=== PATIENT | male | born 1950 | race Caucasian/White ===

== ENCOUNTER → 2016-06-19 | Outpatient (CLI) | payer BC ==
[~2016-06-19] MED LIST: ASPI-427 PO; AZEL30SP NAE; FLUT0.0529 NAE; GLYB-108 PO; HYDR-4079 PO; METF1TAB53 PO; METO50TA7 PO; MONT1TAB3 PO; OXYM1TAB24 PO; SIMV20TA5 OR; TAMS0.4C38 PO
[2016-06-19 14:15] LABS: ESTIMATED AVERAGE GLUCOSE 157 mg/dl; HA1C FLAG Normal (Normal)
[2016-06-19 14:53] LABS: BLOOD UREA NITROGEN 21 mg/dl (7-18); BUN/CREATININE RATIO 18.6 (10-20); CARBON DIOXIDE 26 mmol/L (21-32); CHLORIDE 107 mmol/L (98-107); CHOLESTEROL 116 mg/dl (0-200); GLUCOSE 78 mg/dl (70-99); SODIUM 142 mmol/L (136-145); TRIGLYCERIDES 94 mg/dl (0-150); VERY LOW DENSITY LIPOPROT CALC 19 mg/dl
[2016-06-19 14:59] LABS: CHOLESTEROL/HDL RATIO 2.7; HDL CHOLESTEROL 43 mg/dl
[2016-06-19 15:00] LABS: CALCIUM 10.4 mg/dl (8.5-10.1)
== END | disposition home or self-care (01) ==
LOC: C.LABSPEC 12:31
PROVIDERS: ATTEND Internal Medicine
DX: Z00.00 Encounter for general adult medical examination without abnormal findings (principal); E11.9 Type 2 diabetes mellitus without complications; E78.5 Hyperlipidemia, unspecified

== ENCOUNTER → 2016-08-01 | Outpatient (CLI) | payer BC ==
--- NOTE | 2016-08-01 10:57 | DIAGNOSTIC IMAGING REPORT ---
MRI OF THE LUMBAR SPINE WITHOUT IV CONTRAST CLINICAL HISTORY: Chronic low back pain. Left lower extremity radiculopathy. COMPARISON STUDY: Radiographs of the lumbar spine dated 01/11/2011. Abdominal CT dated 07/08/2014. TECHNIQUE: MRI of the lumbar spine is performed utilizing various T1 and T2-weighted sequences in the axial and sagittal planes. IV contrast was not administered for this examination. FINDINGS: Lumbar spine: Vertebral body height and alignment are maintained throughout the lumbar spine. There is straightening of the lumbar lordosis. Marrow signal intensity is heterogeneous. Chronic degenerative endplate change is identified at L4-L5. Small anterior osteophytes are seen from L3 to S1. Small hemangiomas are seen at several levels. No destructive bony process is seen. The transverse and spinous processes appear intact. There is no evidence of spondylolysis. Intervertebral discs: Degenerative disc desiccation is seen throughout the lumbar spine. There is severe loss of height at L4-L5 and moderate loss of height at L5-S1. Spinal cord and central canal: The visualized spinal cord is normal in morphology and signal intensity. The conus medullaris terminates at the T12-L1 interspace. The nerve roots of the cauda equina are normal in morphology. There is peripheral splaying of the nerve roots of the cauda equina seen at the level of L5. The central canal appears slightly widened at this level, and there is an apparent septation within the central canal seen at the level of S1 where the nerve roots reconverge centrally. This is noted on axial image #25. There is near-complete fatty replacement of the central canal in the sacral region. L1-L2: Unremarkable. L2-L3: There is minimal posterior disc bulge. In conjunction with hypertrophy of the ligamentum flavum there is mild acquired compromise of the central canal. The minimum AP diameter measures 8 mm. There is minimal bilateral subarticular stenosis. The neural foramina are patent. A synovial cyst on the right projects medially at this level and measures 6 mm. This is best seen on axial image #8 and impinges on the posterior aspect of the thecal sac. L3-L4: There is mild posterior disc bulge. In conjunction with hypertrophy of the ligamentum flavum as well as a 10 mm T1 and T2 hypointense medially projecting indeterminant nodule identified along the right aspect of the ligamentum flavum adjacent to the facet joint seen on axial image #13 this causes mild acquired compromise of the central canal. There is effacement of the posterior right thecal sac from this nodular density. This impinges on the transiting right-sided nerve roots. There is mild central canal stenosis at this level with a minimum AP diameter of 7.5 mm. L4-L5: There is broad-based posterior disc bulge eccentric to left. The central canal appears clear. There is severe left-sided subarticular stenosis with probable impingement on the exiting left L4 nerve root. Facet arthropathy causes moderate left and minimal right neural foraminal stenosis. L5-S1: There is mild posterior disc bulge. Prominent facet arthropathy causes moderate bilateral neural foraminal stenosis. The central canal appears clear at this level with the nerve roots displayed peripherally. Sacrum: Visualized sacrum is normal in morphology and signal intensity. Soft tissues: The paraspinous soft tissues are normal as imaged. The partially visualized retroperitoneal structures are grossly normal but incompletely assessed. IMPRESSION: 1. No destructive bony process is identified. 2. There is a synovial cyst identified on the right at L2-L3. This effaces the right posterior aspect of the thecal sac, and there is mild acquired compromise of the central canal at this level. 3. There is an indeterminant nodule identified along the right ligamentum flavum at L3-L4. This is located adjacent to the facet joint and may represent a complex synovial cyst (T2 hypointense). Other lesions are not excluded. If clinically warranted this could be further assessed with a contrast-enhanced examination. This nodule effaces the right posterior aspect of the thecal sac at this level and impinges on the transiting nerve roots. There is mild acquired compromise of the central canal at this level. 4. There is near-complete fatty replacement of the central canal in the sacral region. There is a septation suggested within the central canal in the AP plane at S1. This is of indeterminant significance and may be on a congenital basis. 5. There is peripheral splaying of the nerve roots of the cauda equina at L5. There is no compromise of the central canal at this level, and this is of indeterminant significance. This may be related to a flow phenomenon, the septation seen more inferiorly, or possibly represent a simple cystic lesion within the central canal. The nerve roots of the cauda equina are normal in morphology. 6. See discussion for detailed level by level analysis. Dictated: 08/01/2016 10:24 AM Transcribed: 08/01/2016 10:57 AM [facility] Electronically signed by: Gurpreet Putnam M.D. 08/01/2016 2:38 PM Dictated Date/Time: 08/01/2016 10:24 AM
== END | disposition home or self-care (01) ==
LOC: C.MRIBC 09:24
PROVIDERS: ATTEND Internal Medicine
DX: M54.16 Radiculopathy, lumbar region (principal); M51.86 Other intervertebral disc disorders, lumbar region; M71.39 Other bursal cyst, multiple sites

== ENCOUNTER → 2016-08-17 | Outpatient (CLI) | payer BC ==
--- NOTE | 2016-08-18 05:37 | PAP/PSG TECHNICIAN REPORT ---
[facility] Health Coordinator Polysomnogram Report Study name: None Report date: 08/18/2016 Study date: 08/17/2016 Referring Physician: Robbie Gray M.D. Name: EDWIN JUAN JON Interpreting Physician: Robbie Gray M.D. Date of : 1950 Health Coordinator: Robert Gonzalez RPSGT. Sex: Male Age: 66 StudyType: PSG Weight: 198 lbs 17 inches Height: 66 years, Height 6' 0" Neck Circum: BMI: 26.85 Medications: GLUCOPHAGE 500 MG, GLYBURIDE 2.5 MG, METOPROLOL SUCCINATE ER 25 MG, OPANA ER 10 MG, SIMVASTATIN 20 MG, TAMSULOSIN HCL 0.4 MG Patient History PATIENT HAS HISTORY OF SNORING AND FATIGUE. HE ALSO HAS HISTORY MAINTAING SLEEP AND THIS WILL HAPPEN ALMOST EVERY NIGHT. HE IS ON CHRONIC NARCOTICS. HE HAD SLEEP STUDY DONE IN THE PAST BUT ONLY SHOWED MILD APNEA. HE IS HERE [facility] FOR AN EVALUATION FOR KARL. ESS = 13 RM 1 Parameters Monitored NPSG: E1-M2, E2-M1, Fp1-M2, Fp2-M1, F3-M2, F4-M2, F4-M1, C3-M2, C4-M2, C4-M1, O1-M2, O2-M2, O2-M1, T3-M2, T4-M1, P3-M2, P4-M1, CHIN1, CHIN2, HR, EKG, Legs, PFLOW, SNOR, FLOW, CFLOW, Tidal Volume, THOR, ABDO, SpO2, PLTH, CPRESS, ETCO2 Wave, ETCO2, pH Sleep Architecture Sleep Stages Time at Lights Off 10:39:02 PM STAGES Time (min.) TST (%) Time at Lights On 5:28:32 AM Wake 41.0 -- Total Recording Time (TRT) 410.00 min. N1 5.5 1 Total Sleep Period (TSP) 405.5 min. N2 228.5 62 Total Sleep Time (TST) 368.5min. N3 52.0 14 Awake Time 41.0 min. REM 82.5 22 Wake after Sleep Onset 40.0 min. Sleep Efficiency (SE) 90 % Sleep Onset Latency (JAMILAH) 1.0 min. Number of Stage 1 Shifts None Awakenings 10 Stage Changes 81 Number of REM periods 5 REM 82.5 22 REM Latency 10.5 min. NREM 286.0 78 Body Position Analysis Supine Right Left Side Prone Vertical Total Sleep Time (min.) 167.0 208.3 0.0 208.35 0.0 0.0 Total Sleep Time (%) 43% 57% 0% 57 0% N/A% Total Sleep Time REM (min.) 4.9 77.6 0.0 None 0.0 0.0 Total Sleep Time NREM (min.) 155.2 130.8 0.0 None 0.0 0.0 Intermittent Wake (min.) 6.8 34.2 0.0 None 0.0 0.0 Total Sleep Period (%) 40% None None None None None Arousals Myoclonus (PLM) * Events Count Index Events Count Index Spontaneous 18 3 Events Awake (PLMW) 50 73.2 Respiratory 17 2.8 Events Asleep w/ Arousal (PLMA) 2 0.3 PLM 1 0 Events Asleep w/o Arousal (PLMS) 25 4.1 Snoring 3 0 Total Asleep 27 4.4 Total 39 6 Total 77 11 Respiratory Analysis * CA OA MA CH H RERA Total Count 0 0 0 0 48 15 48 Index 0.0 0.0 0.0 0 7.8 2 10.3 Mean Duration 0.0 0.0 0.0 0.00 21.1 17.0 20.1 Longest Duration 0.0 0.0 0.0 0.00 0.0 21.5 42.2 Respiratory Event Summary Total Supine ~Supine Right Left Prone REM NREM Apneas Count 0 0 0 0 N/A N/A 0 0 Index 0.0 0 0 0.0 N/A N/A 0 0 Hypopneas (4% Desat) Count 48 35 13 13 N/A N/A 7 41 Index 7.8 13.1 4 3.7 N/A N/A 5.1 8.6 Apneas & All Hypopneas Count 48 35 13 13 N/A N/A 7 41 Index 7.8 13 4 4 N/A N/A 5.1 8.6 Respiratory Events (Estate Administrator+All Hyp+RERA) Count 48 45 18 18 N/A N/A 7 41 Index 10.3 17 5 5.2 N/A N/A 5.8 11.5 Respiratory Related Arousal Count 17 45 5 5 N/A N/A 1 16 Index 2.8 4 1 1 N/A N/A 1 3 Snoring Analysis Supine Right Left Prone REM NREM Total Snore duration 9.1 min Snores count 457 44 N/A N/A 13 488 501 Snore mean duration 1.1 Sec Snores index 171 13 N/A N/A 9.5 102.4 81.6 TST with snoring (%) 2.5% Desaturation Event Summary: Minimum %SpO2 Event Count Mean/Min/Max Duration(sec.) Desaturation Index % Time In Bed > 90 54 31.6 / 11.5 / 67.3 8.3 99.0 86 - 90 0 N/A 0.0 1.0 81 - 85 0 N/A 0.0 0.0 76 - 80 0 N/A 0.0 0.0 71 - 75 0 N/A 0.0 0.0 66 - 70 0 N/A 0.0 0.0 61 - 65 0 N/A 0.0 0.0 56 - 60 0 N/A 0.0 0.0 51 - 55 0 N/A 0.0 0.0 < 50 0 N/A 0.0 0.0 Total REM NREM Awake <50% 0.0 min. 0.0 min. 0.0 min. 0.0 min. 51 - 60% 0.0 min. 0.0 min. 0.0 min. 0.0 min. 61 - 70% 0.0 min. 0.0 min. 0.0 min. 0.0 min. 71 - 80% 0.0 min. 0.0 min. 0.0 min. 0.0 min. 81 - 90% 3.8 min. 0.1 min. 3.6 min. 0.1 min. 91 - 100% 392.1 min. 82.4 min. 282.4 min. 27.3 min. Average 95 96 94 95 Minimum SpO2 89 89 89 90 Desaturation Event Index 7.9 5.8 8.6 7.3 # Desat. Events below 89% N/A N/A N/A N/A Time(%) with Saturation below 89% 0.0 0.0 0.0 0.0 Time(min.) with Saturation below 89% 0.0 0.0 0.0 0.0 Time (mins) REM (mins) NREM (mins) % of TST SpO2 Below 90% 7 1 N6 0.0 SpO2 Below 88% 0 0 0 0 Heart Rate Analysis Min (bpm) Max (bpm) Average (bpm) Awake 42 67 57 NREM 38 63 47 REM 39 58 47 Overall 38 63 47 Supplemental O2 Values Minimum O2 level: None Value Start Time End Time Health Coordinator Comments Mr. Rosales slept in the right and supine positions. PAC's noted. Leg movements noted. No bruxism noted. Snoring was noted and scored as a 3 on a scale of 1 through 5. (0=no snoring, 5=snoring loud enough to be heard through a closed door or down the bhakta way) Mr. Rosales awoke to use the restroom 2 times during the night. Mr. Rosales stated I slept as well as I do when I am in my own bed. The final report will be interpreted and signed by a sleep physician. The completed physician report will then be placed in the patient medical record. Therapy (cm H2O) 0 TIB (min.) 409.5 TST (min.) 368.5 Sleep Onset (min.) 1.0 REM Onset From Sleep (min.) 10.5 Sleep Efficiency % 90 Wakefulness (%) 10 Wakefulness (min.) 41.0 NREM 1 (%) 1 NREM 1 (min.) 5.5 NREM 2 (%) 62 NREM 2 (min.) 228.5 NREM 3 (%) 14 NREM 3 (min.) 52.0 REM (%) 22 REM (min.) 82.5 # Arousals 39 Arousal Index 6 # Snore 501 Snore Index 81.6 AHI 7.8 AHI Supine 13 AHI Non-Supine 4 NREM AHI 8.6 REM AHI 5.1 RDI 10.3 # Obstructive Apnea 0 # Central Apnea 0 # Mixed Apnea 0 # Hypopneas 48 RERAs 15 Total Respiratory Events 63 Time Below SpO2 89% (min.) 0.0 Mean NREM SpO2 (%) 94 Mean REM SpO2 (%) 96 Mean Sleep SpO2 (%) 95 Min NREM SpO2 (%) 89 Min REM SpO2 (%) 89 Position Supine (min.) 167.0 Position Non-supine (min.) 208.3 LM Index Sleep 4.4 LM Index NREM 3.8 LM Index REM 6.5 Mean Heart Rate (bpm) 47 Min Heart Rate (bpm) 38
--- NOTE | 2016-08-22 17:09 | Sleep Study ---
Sleep Study Report Date of Service: August 17, 2016 Sleep Study Report Clinical data: The patient is a 66-year-old male with a BMI of 26.9 referred for evaluation of possible sleep apnea. He has a history of insomnia. He has severe fatigue and fragmented sleep architecture. He does have snoring and witnessed apnea at night. He had a previous sleep study which showed no sleep apnea. He is on chronic narcotics for chronic back pain. 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 Sleep architecture: Total sleep period was 405.5 minutes. Total sleep time is 368.5 minutes, divided between 286 minutes of non-REM sleep and 82.5 minutes of REM sleep. Sleep latency was 1 minute. REM latency was 10.5 minutes. Sleep efficiency was 90 percent. Wake after sleep onset was 40 minutes. Sleep consisted of stage N1 1 percent, stage N2 62 percent, stage N3 14 percent, and REM 22 percent. Arousal data: 39 arousals were recorded for an index of 6 per hour. PLM data: 27 limb movements were noted for an index of 4.4 per hour with an arousal index of 0.3 per are Respiratory data: Mild sleep apnea was documented. The AHI was 7.8. There were 48 hypopneas , the mean duration of which was 21.1 seconds. Oximetry data: No significant hypoxemia was seen. Oxygen tony was 89 percent. Mean saturation was 95 percent. EKG: Heart rate ranged from 38 to 63 beats per minute. PACs were noted. Excels[facility] Picker's comments: Patient slept in the right and supine positions. Snoring was moderate rated 3 on a scale of 1 through 5. He woke twice to use the restroom. Impression: Mild sleep apnea with an AHI of 7.8 without nocturnal hypoxemia excessive limb movements during sleep. The patient did have very for shortened sleep latency and for shortened REM latency. Recommendations: The patient may benefit from a repeat sleep study with CPAP. Reduction of his narcotic dosage would also be of benefit. Copies To 1: Josué Muñoz M.D.
== END | disposition home or self-care (01) ==
LOC: C.NEUR 21:00
PROVIDERS: ATTEND Internal Medicine Pulmonary Disease
DX: G89.4 Chronic pain syndrome (principal); M51.36 Other intervertebral disc degeneration, lumbar region; G47.19 Other hypersomnia; G47.00 Insomnia, unspecified; R06.83 Snoring

== ENCOUNTER → 2016-11-15 | Outpatient (CLI) | payer BC ==
[2016-11-15 13:16] LABS: BLOOD UREA NITROGEN 19 mg/dl (7-18); BUN/CREATININE RATIO 18.7 (10-20); CARBON DIOXIDE 23 mmol/L (21-32); CHLORIDE 111 mmol/L (98-107); CHOLESTEROL 111 mg/dl (0-200); GLUCOSE 98 mg/dl (70-99); POTASSIUM 4.4 mmol/L (3.5-5.1); SODIUM 143 mmol/L (136-145); TRIGLYCERIDES 88 mg/dl (0-150); VERY LOW DENSITY LIPOPROT CALC 18 mg/dl
[2016-11-15 13:21] LABS: CHOLESTEROL/HDL RATIO 2.7; HDL CHOLESTEROL 41 mg/dl
== END ==
LOC: C.LABSPEC 12:34
PROVIDERS: ATTEND Internal Medicine
DX: E78.5 Hyperlipidemia, unspecified (principal); I25.10 Atherosclerotic heart disease of native coronary artery without angina pectoris; E11.9 Type 2 diabetes mellitus without complications

== ENCOUNTER → 2016-11-15 | Outpatient (CLI) | payer BC ==
--- NOTE | 2016-11-15 09:46 | DIAGNOSTIC IMAGING REPORT ---
ABDOMINAL ULTRASOUND, RIGHT UPPER QUADRANT HISTORY: UNSPECIFIED CIRRHOSIS OF LIVER. COMPARISON: Abdominal ultrasound 09/24/2015. FINDINGS: Pancreas: The pancreatic head and tail are obscured by overlying bowel gas. The remaining portions of the pancreas are within normal limits. Liver: Slightly nodular contour to the liver consistent with cirrhosis. Stable 7 mm cyst within the liver adjacent to the gallbladder fossa. Gallbladder: No gallbladder wall thickening. Small amount of gallbladder sludge is present. CBD: 6 mm. Right kidney: No hydronephrosis. IMPRESSION: 1. Cirrhotic liver is again noted. 2. Small amount of gallbladder sludge. No gallbladder wall thickening. Electronically signed by: Anam Hunter M.D. 11/15/2016 9:45 AM Dictated Date/Time: 11/15/2016 9:42 AM
== END ==
LOC: C.ULTR 07:09
PROVIDERS: ATTEND Internal Medicine Gastroenterology
DX: K74.60 Unspecified cirrhosis of liver (principal)

== ENCOUNTER → 2017-02-28 | Outpatient (CLI) | payer BC ==
[~2017-02-28] MED LIST changes: -AZEL30SP NAE; +FENT25DI10 TD; -FLUT0.0529 NAE; +GLC/500 PO; -HYDR-4079 PO; +KETO10TA PO; +LISI-729 PO; -METF1TAB53 PO; -MONT1TAB3 PO; +MORP-157 PO; -OXYM1TAB24 PO
[2017-02-28 13:51] LABS: BASO % 0.5 %; BASO ABS # 0.03 K/uL (0-0.2); EOS % 6.2 %; EOS ABS # 0.34 K/uL (0-0.5); HEMATOCRIT 37.3 % (42-52); HEMOGLOBIN 12.7 g/dL (14.0-18.0); IG# 0.01 K/uL (0.00-0.02); LYMPH ABS # 1.92 K/uL (1.2-3.4); MEAN CELL VOLUME 90.3 fL (80-100); MEAN CORPUSCULAR HEMOGLOBIN 30.8 pg (25-34); MEAN PLATELET VOLUME 11.3 fL (7.4-10.4); MONO % 7.7 %; MONO ABS # 0.42 K/uL (0.11-0.59); NEUT % 50.4 %; NEUT ABS # 2.77 K/uL (1.4-6.5); PLATELET COUNT 135 K/uL (130-400); RED CELL DISTRIBUTION WIDTH CV 13.3 % (11.5-14.5); RED CELL DISTRIBUTION WIDTH SD 43.8 fL (36.4-46.3); WHITE BLOOD COUNT 5.49 K/uL (4.8-10.8)
[2017-02-28 14:17] LABS: ALBUMIN 3.7 gm/dl (3.4-5.0); ALT/SGPT 44 U/L (12-78); AST/SGOT 31 U/L (15-37); BLOOD UREA NITROGEN 17 mg/dl (7-18); CALCIUM 9.6 mg/dl (8.5-10.1); CARBON DIOXIDE 25 mmol/L (21-32); CHOLESTEROL 129 mg/dl (0-200); GLUCOSE 119 mg/dl (70-99); POTASSIUM 4.2 mmol/L (3.5-5.1); SODIUM 140 mmol/L (136-145)
[2017-02-28 14:20] LABS: ALKALINE PHOSPHATASE 48 U/L (45-117); LDL CHOLESTEROL (DIRECT) 82 mg/dl; TOTAL PROTEIN 7.4 gm/dl (6.4-8.2)
[2017-03-01 06:25] LABS: HEMOGLOBIN A1C 6.1 % (4.5-5.6)
== END | disposition home or self-care (01) ==
LOC: C.LABSPEC 12:17
PROVIDERS: ATTEND Internal Medicine
DX: I25.10 Atherosclerotic heart disease of native coronary artery without angina pectoris (principal); I10 Essential (primary) hypertension; E11.9 Type 2 diabetes mellitus without complications; E78.5 Hyperlipidemia, unspecified; M51.36 Other intervertebral disc degeneration, lumbar region

== ENCOUNTER 2017-03-20 11:58 | Inpatient (IN) | payer BC ==
[~2017-03-20] VITALS: Ht 180.3 cm; Wt 82.4 kg
[~2017-03-20 11:58] MED LIST changes: -KETO10TA PO; -MORP-157 PO
[2017-03-20] MEDS ORDERED: SIMV40TA2 PO (12:24)
[2017-03-20] MEDS ORDERED: GLYB2.5T7 PO (12:24)
[2017-03-20] MEDS ORDERED: SODIUM CHLORIDE 0.9% 1000ML 1,000 ML IV ONE (12:45)
--- NOTE | 2017-03-20 13:05 | EMERGENCY ROOM VISIT NOTE ---
History Report prepared by Pepper: Marita Willis Under the Supervision of: Dr. Warren Mendosa D.O. First contact with patient: 12:30 Chief Complaint: DIZZY Stated Complaint: DIZZY,NO ENERGY,SOB,NO APETITE,WEIGHTLOSS,BSG HIGH Nursing Triage Summary: Pt states, "I feel lousy. I am lightheaded and dizzy. I have heaviness in my chest and feel sob. I had a triple bypass. The past couple days I come home after a couple hrs of work because I can't function. My blood sugar has been crazy. I take medicine, not insulin. I haven't been eating well for quite awhile. I think I have lost 12-15 lbs in two weeks. Everything I say is echoing through my head. I just got a h/a. My voice has gotten soft and weak. I don't have a sore throat." Hx of tongue cancer. History of Present Illness The patient is a 66 year old male who presents to the Emergency Room with complaints of worsening generalized illness beginning two weeks ago. The patient reports fatigue, dizzy, decreased appetite, leg cramping, generalized weakness, lightheaded, chest heaviness, shortness of breath with exertion, and weight loss. The patient lost about 15 pound over the past two weeks. Per , the patient's voice sounds different and more "raspy". The patient reports he was on opioids for an extended period which just stopped taking in January. The patient states his liver is being monitored for "slight scarring". He states he had an appointment with his PCP tomorrow but was referred to come to the ED when he told them his symptoms. The patient denies any leg swelling, bloody or black stools, or abdominal pain. The patient has a history of a heart attack, triple bypass, diabetes, and oral cancer in 1989. The patient denies any tobacco or alcohol use. The patient recently had an MRI on his back and was put on fentanyl patches for his pain. Source of History: patient Onset: two weeks ago Position: other (generalized) Quality: other (illness) Timing: worsening Associated Symptoms: + chest pain, + SOB, + fatigue, + weakness, No abdominal pain Review of Systems See HPI for pertinent positives & negatives. A total of 10 systems reviewed and were otherwise negative. Past Medical & Surgical Medical Problems: (1) Diabetes (2) Flu-like symptoms (3) Generalized weakness (4) Heart attack (5) Oral cancer Surgical Problems: (1) S/P triple vessel bypass Family History Patient reports no known family medical history. Social History Smoking Status: Never Smoker Alcohol Use: none Marital Status: Housing Status: lives with family Occupation Status: employed Current/Historical Medications Scheduled Aspirin (Ecotrin Regular Strength), 325 MG PO Q2D Glyburide (Diabeta), 2.5 MG PO BID Lisinopril (Zestril), 10 MG PO DAILY Metformin Hcl (Glucophage), 500 MG PO BID Metoprolol Succ (Toprol Xl) (Toprol-Xl), 50 MG PO BID Simvastatin (Zocor), 40 MG PO DAILY Tamsulosin Hcl (Flomax), 0.4 MG PO DAILY Allergies Coded Allergies: No Known Allergies (Verified , 03/20/17) Physical Exam Vital Signs Date Time Temp Pulse Resp B/P (MAP) Pulse Ox O2 Delivery O2 Flow Rate FiO2 03/20/17 17:29 50 20 127/69 99 Room Air 03/20/17 17:17 98 Room Air 03/20/17 15:39 51 18 116/59 98 Room Air 03/20/17 13:58 51 20 93/59 97 Room Air 03/20/17 13:03 51 03/20/17 12:50 99 Room Air 03/20/17 12:10 36.5 58 18 94/59 99 Room Air Physical Exam GENERAL: Patient is awake, alert, and in no acute distress. Patient is resting comfortably and showing no signs of anxiety EYES: The conjunctiva are pale pupils are round and reactive. EARS, NOSE, MOUTH AND THROAT: The nose is without any evidence of any deformity. Mucous membranes are moist tongue is midline NECK: The neck is nontender and supple. RESPIRATORY: Normal respiratory effort is noted there is no evidence of wheezing rhonchi or rales CARDIOVASCULAR: Regular rate and rhythm noted there no murmurs rubs or gallops normal S1 normal S2 GASTROINTESTINAL: The abdomen is soft. Bowel sounds are present in all quadrants. Abdomen is nontender MUSCULOSKELETAL/EXTREMITIES: There is no evidence of gross deformity full range of motion is noted in the hips and shoulders SKIN: There is no obvious evidence of any rash. There are no petechiae, pallor or cyanosis noted. NEUROLOGIC: Patient is awake alert and oriented x3 strength is symmetric patellar reflexes are 2+ bilaterally Medical Decision & Procedures ER Provider Diagnostic Interpretation: Radiology results as stated below per my review and radiologist interpretation: CHEST ONE VIEW PORTABLE FINDINGS: Median sternotomy wires and mediastinal surgical clips unchanged. Atherosclerosis of aortic arch. Chronic silhouette normal in size. Lungs and pleural spaces clear. Osseous structures normal. Upper abdomen normal. IMPRESSION: 1. No acute cardiopulmonary disease. Electronically signed by: Feliciano Arizmendi M.D. HEAD WITHOUT CONTRAST (CT) Findings: The paranasal sinuses and mastoid air cells are clear. The calvarium and skull base are intact. The ventricles and sulci are within normal limits. There is no mass, hematoma, midline shift, or acute infarct. Impression: No acute intracranial abnormality. The above report was generated using voice recognition software. It may contain grammatical, syntax or spelling errors. Electronically signed by: Bc Epstein M.D. Laboratory Results 03/20/17 12:40 Red Blood Count 4.86, Mean Corpuscular Volume 88.1, Mean Corpuscular Hemoglobin 31.5, Mean Corpuscular Hemoglobin Concent 35.7, Mean Platelet Volume 12.1, Neutrophils (%) (Auto) 76.4, Lymphocytes (%) (Auto) 16.4, Monocytes (%) (Auto) 6.0, Eosinophils (%) (Auto) 0.8, Basophils (%) (Auto) 0.1, Neutrophils # (Auto) 7.58, Lymphocytes # (Auto) 1.63, Monocytes # (Auto) 0.60, Eosinophils # (Auto) 0.08, Basophils # (Auto) 0.01 03/20/17 12:40 Test 03/20/17 12:40 03/20/17 13:01 03/20/17 17:23 03/20/17 18:53 White Blood Count 9.93 K/uL (4.8-10.8) Red Blood Count 4.86 M/uL (4.7-6.1) Hemoglobin 15.3 g/dL (14.0-18.0) Hematocrit 42.8 % (42-52) Mean Corpuscular Volume 88.1 fL (80-100) Mean Corpuscular Hemoglobin 31.5 pg (25-34) Mean Corpuscular Hemoglobin Concent 35.7 g/dl (32-36) Platelet Count 152 K/uL (130-400) Mean Platelet Volume 12.1 fL (7.4-10.4) Neutrophils (%) (Auto) 76.4 % Lymphocytes (%) (Auto) 16.4 % Monocytes (%) (Auto) 6.0 % Eosinophils (%) (Auto) 0.8 % Basophils (%) (Auto) 0.1 % Neutrophils # (Auto) 7.58 K/uL (1.4-6.5) Lymphocytes # (Auto) 1.63 K/uL (1.2-3.4) Monocytes # (Auto) 0.60 K/uL (0.11-0.59) Eosinophils # (Auto) 0.08 K/uL (0-0.5) Basophils # (Auto) 0.01 K/uL (0-0.2) RDW Standard Deviation 41.0 fL (36.4-46.3) RDW Coefficient of Variation 12.9 % (11.5-14.5) Immature Granulocyte % (Auto) 0.3 % Immature Granulocyte # (Auto) 0.03 K/uL (0.00-0.02) Erythrocyte Sedimentation Rate 22 mm/hr (0-14) Absolute Reticulocyte Count 0.06 10^6/uL (0.02-0.10) Percent Reticulocyte Count 1.2 % (0.5-2.0) Immature Reticulocyte Fraction 3.6 % (2.3-13.4) Reticulocyte Hemoglobin Content 33.8 PG (28.2-36.6) Prothrombin Time 11.1 SECONDS (9.0-12.0) Prothromb Time International Ratio 1.1 (0.9-1.1) Activated Partial Thromboplast Time 18.5 SECONDS (21.0-31.0) Partial Thromboplastin Ratio 0.7 Anion Gap 9.0 mmol/L (3-11) Est Creatinine Clear Calc Drug Dose 40.2 ml/min Estimated GFR () 40.6 Estimated GFR (Non- 35.1 BUN/Creatinine Ratio 21.7 (10-20) Calcium Level 10.8 mg/dl (8.5-10.1) Phosphorus Level 4.0 mg/dl (2.5-4.9) Magnesium Level 2.0 mg/dl (1.8-2.4) Total Bilirubin 1.2 mg/dl (0.2-1) Aspartate Amino Transf (AST/SGOT) 33 U/L (15-37) Alanine Aminotransferase (ALT/SGPT) 41 U/L (12-78) Alkaline Phosphatase 52 U/L (45-117) Total Creatine Kinase 114 U/L (39-308) Creatine Kinase MB 6.8 ng/ml (0.5-3.6) Creatine Kinase MB Ratio 6.0 (0-3.0) Troponin I < 0.015 ng/ml (0-0.045) C-Reactive Protein < 0.29 mg/dl (0-0.29) Total Protein 7.7 gm/dl (6.4-8.2) Albumin 4.1 gm/dl (3.4-5.0) Globulin 3.6 gm/dl (2.5-4.0) Albumin/Globulin Ratio 1.1 (0.9-2) Lipase 235 U/L (73-393) Beta-Hydroxybutyric Acid 1.84 mg/dL (0.2-2.81) Thyroid Stimulating Hormone (TSH) 1.380 uIu/ml (0.300-4.500) Free Thyroxine 1.10 ng/dl (0.80-1.60) Bedside Lactic Acid Venous 2.88 mmol/L (0.90-1.70) Lactic Acid Level 2.7 mmol/L (0.4-2.0) Laboratory results per my review. Medications Administered Medications (Trade) Dose Ordered Sig/Jessica Route Start Time Stop Time Status Last Admin Dose Admin Sodium Chloride 1,000 ml @ 999 mls/hr Q1H1M ONCE IV 03/20/17 12:45 03/20/17 13:45 DC 03/20/17 12:45 999 MLS/HR Sodium Chloride 1,000 ml @ 999 mls/hr Q1H1M STAT IV 03/20/17 15:23 03/20/17 16:23 DC 03/20/17 15:23 999 MLS/HR ECG Indication: weakness Rate (beats per minute): 50 Rhythm: sinus bradycardia Findings: no ectopy, other (no acute ST segment abnormalities) Comparison ECG Date: 05/30/08 Change: no significant change Change: EKG interpreted by me. ED Course 1239: The patient was evaluated in room B12B. A complete history and physical examination were performed. 1245: Ordered NSS 1,000 ml @ 999 mls/hr IV. 1523: Ordered NSS 1,000 ml @ 999 mls/hr IV 1527: I discussed the patient's case with Dr. Velez. The patient will be evaluated for further management. Medical Decision Differential diagnosis: Etiologies such as metabolic, infection, hypo/hyperglycemia, electrolyte abnormalities, cardiac sources, intracerebral event, toxicologic, neurologic, as well as others were entertained. Nursing notes reviewed. The patient is a 66-year-old male who presented to emergency department with very vague complaints including generalized weakness. The patient was found have hypotension but was also bradycardic. I'm unsure if this represents a complication from his current blood pressure medication. The patient had a septic workup was in the emergency department. He was treated with IV fluids. He was reevaluated multiple times and appeared to be feeling much better. His lactic acid was elevated as well as his potassium. I discussed the patient's laboratory and radiographic studies with him. Because of his symptoms I discussed his case with the on-call [facility] hospitalist group. They've agreed to evaluate the patient in emergency department for further management and disposition. Medication Reconcilliation Current Medication List: was personally reviewed by me Blood Pressure Screening Patient's blood pressure: Low blood pressure Consults Time Called: 152 Consulting Physician: Dr. Velez Returned Call: [phone] I discussed the patient's case with Dr. Velez. The patient will be evaluated for further management. Impression Primary Impression: Weakness Additional Impressions: Chest pain Dyspnea Dehydration Hypercalcemia Scribe Attestation The scribe's documentation has been prepared under my direction and personally reviewed by me in its entirety. I confirm that the note above accurately reflects all work, treatment, procedures, and medical decision making performed by me. Departure Information Dispostion Being Evaluated By Hospitalist Referrals Josué Muñoz M.D. (PCP) Patient Instructions My [facility] Health Problem Qualifiers Additional Impressions: Chest pain Chest pain type: unspecified Qualified Codes: R07.9 - Chest pain, unspecified Dyspnea Dyspnea type: dyspnea on exertion Qualified Codes: R06.09 - Other forms of dyspnea
--- NOTE | 2017-03-20 13:22 | DIAGNOSTIC IMAGING REPORT ---
CHEST ONE VIEW PORTABLE CLINICAL HISTORY: 66 years-old Male presenting with Sepsis. TECHNIQUE: Portable upright AP view of the chest was obtained. COMPARISON: 10/23/2012. FINDINGS: Median sternotomy wires and mediastinal surgical clips unchanged. Atherosclerosis of aortic arch. Chronic silhouette normal in size. Lungs and pleural spaces clear. Osseous structures normal. Upper abdomen normal. IMPRESSION: 1. No acute cardiopulmonary disease. Electronically signed by: Feliciano Arizmendi M.D. 03/20/2017 1:20 PM Dictated Date/Time: 03/20/2017 1:20 PM
[2017-03-20 13:32] LABS: BASO % 0.1 %; BASO ABS # 0.01 K/uL (0-0.2); EOS % 0.8 %; EOS ABS # 0.08 K/uL (0-0.5); HEMATOCRIT 42.8 % (42-52); HEMOGLOBIN 15.3 g/dL (14.0-18.0); IG# 0.03 K/uL (0.00-0.02); LYMPH % 16.4 %; LYMPH ABS # 1.63 K/uL (1.2-3.4); MEAN CELL VOLUME 88.1 fL (80-100); MEAN CORPUSCULAR HEMOGLOBIN 31.5 pg (25-34); MEAN CORPUSCULAR HGB CONC 35.7 g/dl (32-36); MEAN PLATELET VOLUME 12.1 fL (7.4-10.4); NEUT % 76.4 %; NEUT ABS # 7.58 K/uL (1.4-6.5); PLATELET COUNT 152 K/uL (130-400); RED CELL DISTRIBUTION WIDTH CV 12.9 % (11.5-14.5); RETIC COUNT % 1.2 % (0.5-2.0); WHITE BLOOD COUNT 9.93 K/uL (4.8-10.8)
[2017-03-20 14:02] LABS: INR 1.1 (0.9-1.1)
[2017-03-20 14:06] LABS: PTT PATIENT 18.5 SECONDS (21.0-31.0)
[2017-03-20 14:12] LABS: ALBUMIN 4.1 gm/dl (3.4-5.0); ALT/SGPT 41 U/L (12-78); AST/SGOT 33 U/L (15-37); BLOOD UREA NITROGEN 42 mg/dl (7-18); CALCIUM 10.8 mg/dl (8.5-10.1); CARBON DIOXIDE 24 mmol/L (21-32); CREATININE 1.95 mg/dl (0.60-1.40); GLUCOSE 327 mg/dl (70-99); LIPASE 235 U/L (73-393); POTASSIUM 5.2 mmol/L (3.5-5.1); SODIUM 133 mmol/L (136-145)
[2017-03-20 14:16] LABS: ALKALINE PHOSPHATASE 52 U/L (45-117); CKMB 6.8 ng/ml (0.5-3.6); TOTAL PROTEIN 7.7 gm/dl (6.4-8.2)
--- NOTE | 2017-03-20 14:31 | DIAGNOSTIC IMAGING REPORT ---
HEAD WITHOUT CONTRAST (CT) CT DOSE: 537.48 mGy.cm HISTORY: Mental status change weakness TECHNIQUE: Multiaxial CT images of the head were performed without the use of intravenous contrast. A dose lowering technique was utilized adhering to the principles of ALARA. Comparison: None. Findings: The paranasal sinuses and mastoid air cells are clear. The calvarium and skull base are intact. The ventricles and sulci are within normal limits. There is no mass, hematoma, midline shift, or acute infarct. Impression: No acute intracranial abnormality. The above report was generated using voice recognition software. It may contain grammatical, syntax or spelling errors. Electronically signed by: Bc Epstein M.D. 03/20/2017 2:30 PM Dictated Date/Time: 03/20/2017 2:28 PM
[2017-03-20] MEDS ORDERED: SODIUM CHLORIDE 0.9% 1000ML 1,000 ML IV STA (15:23)
[2017-03-20] MEDS ORDERED: POLYETHYLENE (MIRALAX) 17 GM PACK PO PRN (17:15)
[2017-03-20] MEDS ORDERED: ONDANSETRON INJ 2 MG/ML 2 ML VIAL IV PRN (17:15)
[2017-03-20] MEDS ORDERED: ALUMINUM/MAGNESIUM/SIMETH (MAALOX MAX) 30 ML UDC PO PRN (17:15)
[2017-03-20] MEDS ORDERED: MAGNESIUM HYDROXIDE SUSP 30 ML UDC PO PRN (17:15)
[2017-03-20 17:17] VITALS: O2SAT 98; Ht 180.3 cm; Wt 82.4 kg
[2017-03-20 17:29] VITALS: O2SAT 99
--- NOTE | 2017-03-20 18:47 | History and Physical ---
History & Physical Date & Time of Service: Mar 20, 2017 at 18:36 Chief Complaint: Dizzy,No Energy,Sob,No Apetite,Weightloss,Bsg High Primary Care Physician: Josué Muñoz M.D. History of Present Illness Source: patient, family 66 yo male with PMH of CABG x3 (1999), HTN, HLD. DMII, presents to [facility] complaining of flu-like symptoms over the past two weeks. Patient reports that the predominant symptoms have been weakness and fatigue. He says that the weakness is most noticeable when he is walking up steps and becomes SOB. In addition to SOB with exertion, the patient also reports intermittent substernal pressure and chest tightness. Patient reports that he recently stopped using opioid medications cold turkey at the beginning of Jan after 10 years of use for chronic back pain. The patient reported withdrawal symptoms in the immediate aftermath and was subsequently prescribed and completed tapering doses. He says that since quitting the pain medications, he has had both labile blood sugars and labile blood pressures, both of which have been previously well controlled. Additional symptoms over this two week period include; dizziness, near syncope, loss of appetite, 15 lbs weight loss, occipital headaches and lower extremity cramping. Past Medical/Surgical History Medical Problems: (1) Diabetes Status: Chronic (2) Heart attack Status: Resolved (3) Oral cancer Status: Resolved Surgical Problems: (1) S/P triple vessel bypass Status: Resolved Family History Patient reports no known family medical history. Social History Smoking Status: Never Smoker Marital Status: Housing status: lives with family Occupational Status: employed Immunizations History of Tetanus Vaccine?: Unknown History of Pneumococcal: No History of Hepatitis B Vaccine: No Multi-Drug Resistant Organisms History of MDRO: No Allergies Coded Allergies: No Known Allergies (Verified , 03/20/17) Home Medications Scheduled Aspirin (Ecotrin Regular Strength), 325 MG PO Q2D Glyburide (Diabeta), 2.5 MG PO BID Lisinopril (Zestril), 10 MG PO DAILY Metformin Hcl (Glucophage), 500 MG PO BID Metoprolol Succ (Toprol Xl) (Toprol-Xl), 50 MG PO BID Simvastatin (Zocor), 40 MG PO DAILY Tamsulosin Hcl (Flomax), 0.4 MG PO DAILY Review of Systems Constitutional: + fatigue, No fever, No chills, No sweats ENT: + nasal symptoms, + sore throat, + problem reported (hoarseness), No trouble swallowing Respiratory: + shortness of breath, + dyspnea on exertion, No cough, No sputum , No wheezing Cardiovascular: No chest pain, No edema, No palpitations Abdomen: No pain, No nausea, No vomiting, No diarrhea Genitourinary - Male: No dysuria Neurologic: + weakness Endocrine: + fatigue Physical Exam Vital Signs Date Time Temp Pulse Resp B/P (MAP) Pulse Ox O2 Delivery O2 Flow Rate FiO2 03/20/17 17:29 50 20 127/69 99 Room Air 03/20/17 17:17 98 Room Air 03/20/17 15:39 51 18 116/59 98 Room Air 03/20/17 13:58 51 20 93/59 97 Room Air 03/20/17 13:03 51 03/20/17 12:50 99 Room Air 03/20/17 12:10 36.5 58 18 94/59 99 Room Air General Appearance: no apparent distress Head: normocephalic, atraumatic Neck: supple, no adenopathy, thyroid normal Respiratory/Chest: chest non-tender, lungs clear, normal breath sounds, no respiratory distress Cardiovascular: regular rate, rhythm, no JVD, normal peripheral pulses, + diastolic murmur Abdomen/GI: normal bowel sounds, non tender, soft, no organomegaly Neurologic/Psych: clinical data management manager II-XII nml as tested, no motor/sensory deficits, alert, normal mood/affect, normal reflexes, oriented x 3 Skin: warm/dry, + pallor, + pertinent finding (reyes, dusky skin ) Diagnostics Laboratory Results Results Past 24 Hours Test 03/20/17 12:40 03/20/17 13:01 03/20/17 17:23 Range/Units White Blood Count 9.93 4.8-10.8 K/uL Red Blood Count 4.86 4.7-6.1 M/uL Hemoglobin 15.3 14.0-18.0 g/dL Hematocrit 42.8 42-52 % Mean Corpuscular Volume 88.1 80-100 fL Mean Corpuscular Hemoglobin 31.5 25-34 pg Mean Corpuscular Hemoglobin Concent 35.7 32-36 g/dl Platelet Count 152 130-400 K/uL Mean Platelet Volume 12.1 7.4-10.4 fL Neutrophils (%) (Auto) 76.4 % Lymphocytes (%) (Auto) 16.4 % Monocytes (%) (Auto) 6.0 % Eosinophils (%) (Auto) 0.8 % Basophils (%) (Auto) 0.1 % Neutrophils # (Auto) 7.58 1.4-6.5 K/uL Lymphocytes # (Auto) 1.63 1.2-3.4 K/uL Monocytes # (Auto) 0.60 0.11-0.59 K/uL Eosinophils # (Auto) 0.08 0-0.5 K/uL Basophils # (Auto) 0.01 0-0.2 K/uL RDW Standard Deviation 41.0 36.4-46.3 fL RDW Coefficient of Variation 12.9 11.5-14.5 % Immature Granulocyte % (Auto) 0.3 % Immature Granulocyte # (Auto) 0.03 0.00-0.02 K/uL Erythrocyte Sedimentation Rate 22 0-14 mm/hr Absolute Reticulocyte Count 0.06 0.02-0.10 10^6/uL Percent Reticulocyte Count 1.2 0.5-2.0 % Immature Reticulocyte Fraction 3.6 2.3-13.4 % Reticulocyte Hemoglobin Content 33.8 28.2-36.6 PG Prothrombin Time 11.1 9.0-12.0 SECONDS Prothromb Time International Ratio 1.1 0.9-1.1 Activated Partial Thromboplast Time 18.5 21.0-31.0 SECONDS Partial Thromboplastin Ratio 0.7 Sodium Level 133 136-145 mmol/L Potassium Level 5.2 3.5-5.1 mmol/L Chloride Level 100 98-107 mmol/L Carbon Dioxide Level 24 21-32 mmol/L Anion Gap 9.0 3-11 mmol/L Blood Urea Nitrogen 42 7-18 mg/dl Creatinine 1.95 0.60-1.40 mg/dl Est Creatinine Clear Calc Drug Dose 40.2 ml/min Estimated GFR () 40.6 Estimated GFR (Non- 35.1 BUN/Creatinine Ratio 21.7 10-20 Random Glucose 327 70-99 mg/dl Calcium Level 10.8 8.5-10.1 mg/dl Phosphorus Level 4.0 2.5-4.9 mg/dl Magnesium Level 2.0 1.8-2.4 mg/dl Total Bilirubin 1.2 0.2-1 mg/dl Aspartate Amino Transf (AST/SGOT) 33 15-37 U/L Alanine Aminotransferase (ALT/SGPT) 41 12-78 U/L Alkaline Phosphatase 52 45-117 U/L Total Creatine Kinase 114 39-308 U/L Creatine Kinase MB 6.8 0.5-3.6 ng/ml Creatine Kinase MB Ratio 6.0 0-3.0 Troponin I < 0.015 0-0.045 ng/ml C-Reactive Protein < 0.29 0-0.29 mg/dl Total Protein 7.7 6.4-8.2 gm/dl Albumin 4.1 3.4-5.0 gm/dl Globulin 3.6 2.5-4.0 gm/dl Albumin/Globulin Ratio 1.1 0.9-2 Lipase 235 73-393 U/L Beta-Hydroxybutyric Acid 1.84 0.2-2.81 mg/dL Thyroid Stimulating Hormone (TSH) 1.380 0.300-4.500 uIu/ml Free Thyroxine 1.10 0.80-1.60 ng/dl Bedside Lactic Acid Venous 2.88 0.90-1.70 mmol/L Lactic Acid Level 2.7 0.4-2.0 mmol/L Microbiology Results 03/20/17 Blood Culture, Received Pending 03/20/17 Blood Culture, Received Pending Diagnostic Radiology CHEST ONE VIEW PORTABLE CLINICAL HISTORY: 66 years-old Male presenting with Sepsis. TECHNIQUE: Portable upright AP view of the chest was obtained. COMPARISON: 10/23/2012. FINDINGS: Median sternotomy wires and mediastinal surgical clips unchanged. Atherosclerosis of aortic arch. Chronic silhouette normal in size. Lungs and pleural spaces clear. Osseous structures normal. Upper abdomen normal. IMPRESSION: 1. No acute cardiopulmonary disease. [~ rep ct add3]] HEAD WITHOUT CONTRAST (CT) CT DOSE: 537.48 mGy.cm HISTORY: Mental status change weakness TECHNIQUE: Multiaxial CT images of the head were performed without the use of intravenous contrast. A dose lowering technique was utilized adhering to the principles of ALARA. Comparison: None. Findings: The paranasal sinuses and mastoid air cells are clear. The calvarium and skull base are intact. The ventricles and sulci are within normal limits. There is no mass, hematoma, midline shift, or acute infarct. Impression: No acute intracranial abnormality. CXR normal EKG new T wave inversion in leads III, avf Impression Assessment and Plan 66 yo male presents to the ED after 2 weeks of flu-like symptoms, chest tightness and dyspnea with exertion. Flu-like illness, Generalized weakness, Weight loss (15lbs on 2 weeks) cardiac vs infectious vs systolic CHF vs failure to thrive Flu-like illness, generalized weakness, weight loss -Blood cultures pending -UA pending -Urine culture pending -CXR unremarkable for cardiopulmonary pathology -Rapid Flu pending -Lactic Acid 2.7 -Empirically treating with IV Vanc/Zosyn Chest pain NYD, SOBOE new onset -Repeat trop x2 -EKG in the am and with CP -EKG in the ED showed new T wave inversions in inferior leads -ECHO ordered for tomorrow -NPO except for water and ice chips -Advance diet in the morning pending ACS rule out -Daily weights, follow I/O -Orthostatic BP in the AM SHANTE--possibly 2/2 to malnourishment, dehydration, hyperglycemia -Patient received 2 L bolus in the ED and hypotension has been responsive to fluids -Will continue IVF 100 mls/hr -BMP in the am DMII uncontrolled -Glucose 327 in the ED -4 units apart given in the ED -hold home glyburide, metformin -Start sliding scale insulin -Glucose checks--Q6 hr while NPO, ac/hs with diet advancement Hyperkalemia -Possibly 2/2 SHANTE -No conduction abnormality seen on EKG that would require Ca2+ gluconate. Hypernatremia -Repeat BMP in the am CABG/HLD/Bradycardia/Hypotension -hold metoprolol -hold lisinopril -Cont simvastatin -hold flomax (bladder scan/straight cath if retaining) DVT ppx SCD, will revisit after acs rule out Full code Level of Care Telemetry Advanced Directives Existing Living Will: No Existing Power of Air Saw Operator: No VTE Prophylaxis VTE Risk Assessment Done? Y/N: Yes Risk Level: Moderate Given or contraindicated: SCD's Reviewed: Pt Seen/Exam by Me History 66 y/o M with c/o weakness, dizziness, muscle cramps for 2-3 wks and decreased appetite for 3-4 mths. had recently been taken off of his chronic narcotics and had nerve ablation done later on reports increased stress in recent months Constitutional: denies: fever Respiratory: negative: short of breath Cardiovascular: denies chest pain General Appearance: no apparent distress Respiratory: lungs clear, no respiratory distress Cardiovascular: regular rate, rhythm Neurologic/Psychiatric: alert, oriented x 3 Skin Characteristics: warm/dry Assessment/Plan Resident Physician Supervision Note: I independently interviewed and examined the patient and verified the price history and physical, reviewed labs and image studies, discussed the case with the resident Dr. Piper and agree with the findings and care plan.
[2017-03-20 19:20] VITALS: BP 144/72; PULSE 52; TEMP 36.6; O2SAT 100
[2017-03-20 19:40] LABS: INFLUENZA B ANTIGEN Neg for Influ B (NEG)
[2017-03-20] MEDS ORDERED: VANCOMYCIN INJ 1,000 MG in SODIUM CHLORIDE 0.9% 250ML 250 ML IV STA (19:50)
[2017-03-20] MEDS ORDERED: VANCOMYCIN CONSULT ACTIVE PRN (20:00)
[2017-03-20] MEDS ORDERED: DEXTROSE 50% 50 ML SYR IV PRN (20:00)
[2017-03-20] MEDS ORDERED: GLUCOSE 10 TABS/TUBE PO PRN (20:00)
[2017-03-20] MEDS ORDERED: GLUCAGON FOR INJ 1 MG VIAL SQ PRN (20:00)
[2017-03-20] MEDS ORDERED: PIPERACILL/TAZOBAC CONSULT ACTIVE PRN (20:00)
[2017-03-20] MEDS ORDERED: GLUCOSE 40% GEL 15 GM TUBE PO PRN (20:00)
[2017-03-20] MEDS: SODIUM CHLORIDE 0.9% 1000ML 1,000 ML IV SCH (20:52)
[2017-03-20] MEDS ORDERED: PIPERACILL/TAZOBAC IV 3.375 GM in DEXTROSE 5% 100ML 100 ML IV SCH (21:00)
[2017-03-20] MEDS ORDERED: VANCOMYCIN INJ 2,000 MG in SODIUM CHLORIDE 0.9% 500ML 500 ML IV SCH (21:00)
[2017-03-20] MEDS ORDERED: INSULIN ASPART 100 UNITS/ML 3 ML PEN SC SCH ×2 (21:00)
[2017-03-20 23:13] VITALS: BP 142/71; PULSE 55; TEMP 37; O2SAT 97
[2017-03-21] MEDS ORDERED: NURSING VERBAL MED ORDER ONE (00:15)
[2017-03-21] MEDS: PIPERACILL/TAZOBAC IV 3.375 GM in DEXTROSE 5% 100ML 100 ML IV SCH ×3 (01:50→17:50)
[2017-03-21] MEDS: ACETAMINOPHEN 325 MG TAB PO PRN ×2 (01:53→15:16)
[2017-03-21 03:41] VITALS: BP 142/74; PULSE 54; TEMP 36.7; O2SAT 96
[2017-03-21] MEDS: SODIUM CHLORIDE 0.9% 1000ML 1,000 ML IV SCH (05:55)
[2017-03-21] MEDS: INSULIN ASPART 100 UNITS/ML 3 ML PEN SC SCH ×4 (06:00→18:25)
[2017-03-21 06:03] LABS: BASO % 0.3 %; BASO ABS # 0.02 K/uL (0-0.2); EOS % 1.5 %; EOS ABS # 0.09 K/uL (0-0.5); HEMATOCRIT 36.2 % (42-52); HEMOGLOBIN 12.8 g/dL (14.0-18.0); IG# 0.01 K/uL (0.00-0.02); LYMPH % 30.9 %; LYMPH ABS # 1.91 K/uL (1.2-3.4); MEAN CELL VOLUME 88.5 fL (80-100); MEAN CORPUSCULAR HEMOGLOBIN 31.3 pg (25-34); MEAN CORPUSCULAR HGB CONC 35.4 g/dl (32-36); MEAN PLATELET VOLUME 11.1 fL (7.4-10.4); MONO % 8.1 %; NEUT ABS # 3.66 K/uL (1.4-6.5); PLATELET COUNT 112 K/uL (130-400); WHITE BLOOD COUNT 6.19 K/uL (4.8-10.8)
[2017-03-21 06:36] LABS: CALCIUM 9.5 mg/dl (8.5-10.1); CREATININE 1.31 mg/dl (0.60-1.40); POTASSIUM 4.6 mmol/L (3.5-5.1)
[2017-03-21] MEDS: SIMVASTATIN 40 MG TAB PO SCH (08:02)
[2017-03-21 08:34] VITALS: BP 158/95; PULSE 58; PULSE 64; PULSE 65; TEMP 36.9; O2SAT 98
[2017-03-21] MEDS ORDERED: OPTIRAY 320 IV PRN (09:45)
[2017-03-21] MEDS ORDERED: VANCOMYCIN INJ 1,250 MG in SODIUM CHLORIDE 0.9% 250ML 250 ML IV ONE (10:00)
--- NOTE | 2017-03-21 10:30 | Clinical Documentation Query ---
CLINICAL DOCUMENTATION QUERY 66 year old male who presents to the Emergency Room with complaints of worsening generalized illness In your clinical opinion is this patient being managed for: ( v ) Possible Sepsis due to unknown cause evidenced by SOFA score >=2 treated with boluses and multiple IV antibiotics. ( ) Not Agree ( ) Other explanation of clinical findings (Please Explain) ( ) Unable to determine (Please Define) ( ) Need to Discuss The medical record reflects the following clinical findings, treatment, and risk factors. Clinical Indicators: SOFA score of >=2 (3 by my count). Lactic acid 2.7, Creatinine 1.95, total bilirubin 1.2, Platelet count of 112, Treatment: IV Vancomycin, IV Zosyn, multiple IVF boluses, Influenza PCR for A & B, Risk Factors: Age, weight loss, ?of influenza. Please clarify and document your clinical opinion in the progress notes and discharge summary. Terms such as "probable", "suspected", "likely", "questionable", "possible", or "still to be ruled out" are acceptable. IF IN AGREEMENT, YOU MUST DOCUMENT ABOVE DIAGNOSTIC STATEMENT IN DAILY PROGRESS NOTES AND DISCHARGE SUMMARY. This document is not part of the patient's record. The Sequential Organ Failure Assessment (SOFA) scorea Organ system SOFA score 0 1 2 3 4 Respiratory, PO2/FiO2, mmHg (kPa) =400 (53.3) <400 (53.3) <300 (40) <200 (26.7) with respiratory support <100 (13.3) with respiratory Coagulation, Platelets, x103/mm3 =150 <150 <100 <50 <20 Liver, Bilirubin, mg/dL <1.2 1.2-1.9 2.0-5.9 6.0-11.9 >12.0 Cardiovascular MAP =70 mmHg MAP <70 mmHg Dopamine <5 or dobutamine (any dose)b Dopamine 5.1-15 or epinephrine =0.1 or norepinephrine =0.1b Dopamine >15 or epinephrine >0.1 or norepinephrine >0.1b Central nervous system, Kaushik Coma Scale 15 13-14 10-12 6-9 <6 Renal, Creatinine, mg/dL. Urine output, mL/d <1.2 1.2-1.9 2.0-3.4 3.5-4.9<500 >5.0<200 a, adapted from Brenden et al. (7); b, Catecholamine doses are given as ug/kg/min for at least 1 hour. FiO2, fraction of inspired oxygen; MAP, mean arterial pressure; PO2, partial pressure of oxygen. Thank You, Abdulkadir Ladd RN [phone]
[2017-03-21 11:12] VITALS: BP 150/86; PULSE 57; TEMP 36.8; O2SAT 97
[2017-03-21 11:19] LABS: INFLUENZA A PCR Neg for Influ A (NEG); INFLUENZA B PCR Neg for Influ B (NEG)
--- NOTE | 2017-03-21 12:11 | ECHOCARDIOGRAM REPORT ---
*NOTICE TO RECEIVING [employer] This information is strictly Confidential and protected under [place] law. [place] law prohibits you from making any further disclosure of this information unless further disclosure is expressly permitted by the written consent of the person to whom it pertains or is authorized by law. A general authorization for the release of medical or other information is not sufficient for this purpose. Hospital accepts no responsibility if the information is made available to any other person, INCLUDING THE PATIENT. Interpretation Summary * Name: JUAN PINEDA Study Date: 03/21/2017 06:45 AM BP: 142/74 mmHg * Patient Location: [facility] HR: 47 * : 1950 (M/d/yyyy) Gender: Male Height: 70 in * Age: 66 yrs Ethnicity: [place] Weight: 182 lb * Ordering Physician: Santo Piper * Referring Physician: Josué Muñoz * Performed By: Martha Hernandez RDCS * * Reason For Study: CHEST PAIN * BSA: 2.0 m2 * -- Conclusions -- * 1. Normal LV size. Mild concentric LVH. * 2. Normal LV systolic function. LVEF 55-60 %. Moderate inferolateral hypokinesis. * 3. Normal RV size and function. * 4. No significant valvular pathology. * 5. Normal estimated PA and RA pressures. * 6. Compared with prior study on 10/16/2014: No significant change Procedure Details * A complete two-dimensional transthoracic echocardiogram was performed (2D, M-mode, Doppler and color flow Doppler). Left Ventricle * The left ventricle is grossly normal size. * There is normal left ventricular wall thickness. * There is mild concentric left ventricular hypertrophy. * Ejection Fraction = 55-60%. * There is moderate anterior wall hypokinesis. Right Ventricle * The right ventricle is grossly normal size. * The right ventricular systolic function is normal as assessed by tricuspid annular plane systolic excursion (TAPSE) (normal >1.5 cm). Atria * The left atrium is mildly dilated. * Right atrial size is normal. * Lipomatous hypertrophy of the interatrial septum is noted. * No ASD detected; PFO is not assessed. Mitral Valve * The mitral valve is grossly normal. * There is no mitral valve stenosis. * There is trace mitral regurgitation. Tricuspid Valve * There is trace tricuspid regurgitation. Aortic Valve * The aortic valve opens well. * The aortic valve is trileaflet. * No hemodynamically significant valvular aortic stenosis. * There is no significant aortic regurgitation. Pulmonic Valve * The pulmonic valve is not well visualized. Great Vessels * The aortic root and proximal ascending aorta are normal sized. Pericardium/Pleural * There is no pericardial effusion. Great Vessels * Normal inferior vena cava size and collapsability with sniff indicates a normal right atrial pressure of 3 mmHg * There is no evidence of pulmonary hypertension. The PA systolic pressure is less than 36 mmHg. MMode 2D Measurements and Calculations IVSd 1.3 cm IVSs 1.8 cm LVIDd 4.4 cm LVIDs 3.2 cm LVPWd 1.4 cm LVPWs 1.6 cm IVS/LVPW 0.88 FS 28.0 % EDV(Teich) 88.0 ml ESV(Teich) 40.2 ml EF(Teich) 54.3 % EDV(cubed) 85.5 ml ESV(cubed) 32.0 ml EF(cubed) 62.6 % % IVS thick 44.3 % % LVPW thick 12.0 % LV mass(C)d 225.7 grams LV mass(C)dI 112.5 grams/m\S\2 LV mass(C)s 211.4 grams LV mass(C)sI 105.4 grams/m\S\2 SV(Teich) 47.8 ml SI(Teich) 23.8 ml/m\S\2 SV(cubed) 53.5 ml SI(cubed) 26.7 ml/m\S\2 Ao root diam 3.3 cm Ao root area 8.4 cm\S\2 LA dimension 3.4 cm LA/Ao 1.0 LVAd ap4 33.0 cm\S\2 LVLd ap4 8.6 cm EDV(MOD-sp4) 107.3 ml EDV(sp4-el) 107.6 ml LVAs ap4 18.9 cm\S\2 LVLs ap4 6.7 cm ESV(MOD-sp4) 46.9 ml ESV(sp4-el) 45.6 ml EF(MOD-sp4) 56.3 % EF(sp4-el) 57.7 % LVAd ap2 32.0 cm\S\2 LVLd ap2 8.4 cm EDV(MOD-sp2) 101.7 ml EDV(sp2-el) 103.9 ml LVAs ap2 18.9 cm\S\2 LVLs ap2 6.8 cm ESV(MOD-sp2) 45.3 ml ESV(sp2-el) 44.8 ml EF(MOD-sp2) 55.5 % EF(sp2-el) 56.9 % LVLd %diff -2.53 % EDV(MOD-bp) 104.9 ml LVLs %diff 1.7 % ESV(MOD-bp) 46.3 ml EF(MOD-bp) 55.8 % SV(MOD-sp4) 60.4 ml SI(MOD-sp4) 30.1 ml/m\S\2 SV(MOD-sp2) 56.4 ml SI(MOD-sp2) 28.1 ml/m\S\2 SV(MOD-bp) 58.5 ml SI(MOD-bp) 29.2 ml/m\S\2 SV(sp4-el) 62.1 ml SI(sp4-el) 31.0 ml/m\S\2 SV(sp2-el) 59.1 ml SI(sp2-el) 29.5 ml/m\S\2 Doppler Measurements and Calculations MV E max marla 70.8 cm/sec MV A max marla 85.9 cm/sec MV E/A 0.82 MV dec time 0.37 sec Ao V2 max 176.5 cm/sec Ao max PG 12.5 mmHg Ao max PG (full) 7.3 mmHg LV V1 max PG 5.2 mmHg LV V1 max 113.8 cm/sec
--- NOTE | 2017-03-21 13:04 | DIAGNOSTIC IMAGING REPORT ---
CHEST CT WITH CONTRAST HISTORY: Acute shortness of breath SOB with exertion, new onset TECHNIQUE: Multiaxial CT images of the chest were performed following the intravenous administration of contrast. A dose lowering technique was utilized adhering to the principles of ALARA. COMPARISON: Chest radiographs 10/23/2012, CT abdomen and pelvis of same day. FINDINGS: Thyroid is homogeneous. No pathologically enlarged lymph nodes by CT size criteria. Heart is normal in size without pericardial effusion. Coronary arterial calcifications are noted. Prior median sternotomy and CABG. Mitral annular calcifications are also present. No aortic aneurysm or dissection identified. The imaged great vessels appear to be patent. The opacified pulmonary arterial tree is also unremarkable. There is no pneumothorax, pleural effusion, focal airspace consolidation or overt pulmonary edema. There are no suspicious pulmonary nodules or masses identified. Subcentimeter subpleural calcified granuloma of the right upper lobe. Central airways are patent. No acute abnormality of the imaged upper abdomen. Cirrhotic morphology of the liver with scattered low attenuating hepatic lesions, further discussed on CT abdomen and pelvis of same day. Soft tissues are unremarkable. The bones appear intact. Degenerative changes are seen within the shoulders and spine. IMPRESSION: 1. No acute intrathoracic abnormality identified. No lobar airspace consolidation to suggest pneumonia. 2. No pathologic adenopathy. 3. Prior median sternotomy and CABG. 4. Cirrhotic morphology of the liver. Electronically signed by: Leonel Rodriguez M.D. 03/21/2017 1:02 PM Dictated Date/Time: 03/21/2017 12:55 PM
--- NOTE | 2017-03-21 13:08 | DIAGNOSTIC IMAGING REPORT ---
SOFT TISSUE NECK WITH CLINICAL HISTORY: 66 years-old Male presenting with hoarsness, PMH of tongue cancer . TECHNIQUE: Multidetector CT of the neck was performed after the administration of intravenous contrast. IV contrast: 94 mL of Optiray 320. A dose lowering technique was used consistent with the principles of ALARA (as low as reasonably achievable). COMPARISON: None. CT DOSE (mGy.cm): The estimated cumulative dose is 2012.08 mGy.cm. 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 Atherosclerosis of the aortic arch. Patent cervical vessels though atherosclerosis of the carotid bifurcations results in minimal narrowing of the origins of the bilateral internal carotid arteries. Minimal asymmetric effacement of the left glossotonsillar sulcus although there is no well-defined nodular hyperenhancing soft tissue. Mild effacement of the left vallecula in comparison to the right. Piriform sinuses preserved. The true and false vocal folds are symmetric and preserved. No infiltration of the preepiglottic or paraglottic fat planes. Parapharyngeal fat planes preserved. The left submandibular gland is absent likely from prior resection. Slight retractile scarring of the left platysma immediately inferior to the level of the hyoid bone. No lymphadenopathy. Degenerative changes of the spine as well as anterior cervical fusion at C3-4 and C5-6. No destructive osseous lesion. Paranasal sinuses and mastoid air cells clear. Lung apices clear. IMPRESSION: 1. Postsurgical and post treatment changes of the left base of the tongue with no suspicious nodular hyper enhancing soft tissue to suggest a residual or recurrent mass. No lymphadenopathy. 2. Normal appearance of the vocal folds. Electronically signed by: Feliciano Arizmendi M.D. 03/21/2017 1:06 PM Dictated Date/Time: 03/21/2017 12:56 PM
--- NOTE | 2017-03-21 13:09 | DIAGNOSTIC IMAGING REPORT ---
CT ABD/PELVIS IV AND ORAL CONT CLINICAL HISTORY: Tongue carcinoma. Unexpected 15 pound weight loss, nausea, loss of appetite. COMPARISON STUDY: 07/08/2014 TECHNIQUE: Following the IV administration of 94 mL of Optiray-320, CT scan of the abdomen and pelvis was performed from the lung bases to the proximal femurs. Images are reviewed in the axial, sagittal, and coronal planes. IV contrast was administered without complication. A dose lowering technique was utilized adhering to the principles of ALARA. CT DOSE: FINDINGS: Lower chest: The heart is normal in size and configuration, without pericardial effusion. The lung bases and pleural spaces are clear. Liver: The liver has a cirrhotic morphology. There are proximally 10 subtle subcentimeter hepatic hypodensities. These are too small to characterize with likely diagnostic considerations to include regenerating nodules, metastatic disease, or hepatocellular carcinoma. These lesions would best be evaluated and followed up with MRI. Gallbladder: Unremarkable. Spleen: Normal in size and attenuation. Pancreas: Unremarkable. Adrenal glands: Unremarkable. Kidneys: No solid renal masses are visualized. There is a tiny nonobstructing left renal calculus. There is mild prominence of the right renal collecting system. No ureteral calculi are visualized. Bowel: There are no transition zones indicate bowel obstruction. There is colonic diverticulosis. There is no acute diverticulitis. There is no acute appendicitis.. Peritoneum: There is no intraperitoneal free air or abdominal ascites. Vasculature: The abdominal aorta is normal in course and caliber. Adenopathy: There is no definitively pathologic adenopathy. Several mildly prominent jc hepatis lymph nodes and peripancreatic lymph nodes remain unchanged the prior study Pelvic viscera: The bladder, and pelvic viscera are unremarkable. Skeletal structures: No destructive osseous lesions are seen. IMPRESSION: 1. Cirrhotic morphology of the liver 2. Multiple subcentimeter hepatic hypodense lesions, slightly more conspicuous than on the prior study perhaps secondary to current contrast administration. Follow-up and surveillance would best be performed via MRI. 3. Mildly prominent upper abdominal lymph nodes remain stable. 4. Diverticulosis. No evidence of acute diverticulitis 5. No evidence of bowel obstruction. No evidence of free air Electronically signed by: Soto Davis M.D. 03/21/2017 1:08 PM Dictated Date/Time: 03/21/2017 12:54 PM
--- NOTE | 2017-03-21 13:13 | Pharmacy Progress Note ---
Pharmacy Abx Dose Short Note Date of Service Mar 21, 2017. Assessment & Plan Assessment * 66 year old male admitted yesterday for "flu-like" symptoms (sore throat, nasal congestion, [place], dizziness, SOB) * Empiric 48 hrs broad spectrum abx therapy has been ordered: vancomycin + Zosyn * CXR: read as no acute process * No leukocytosis noted on labs, patient has been afebrile since admission, sat well on room air * Influ A/B Ag and PCR negative, BLCX's drawn and pending * SHANTE per admit PRP, SCr 1.95 on admit (baseline ~1.0); renal fxn improving w/ hydration (SCr down to 1.31 today and good UO today) Plan Vancomycin * 2000mg loading dose (25mg/kg) x 1 given 03/20 @ 2051 * Maint dose: 1250mg (~15mg/kg) IV Q 16 hours * Goal trough level for pulm source : 15 to 20 mcg/mL * P'kinetic estimates: Vd 0.7L/kg, half-life ~13 hours * Will check trough level if therapy extended beyond 48 hours Zosyn * eCrCl > 20cc/min, BMI 25.4, continue 3.375gm ext-infusion Q 8 hours Pharmacy will continue to follow and will adjust dose/frequency as necessary. Thank you.
[2017-03-21 15:15] VITALS: BP 161/84; PULSE 65; TEMP 36.5; O2SAT 96
[2017-03-21] MEDS ORDERED: TRAMADOL HCL 50 MG TAB PO STA (15:37)
[2017-03-21] MEDS ORDERED: SODIUM CHLORIDE 0.9% 500ML 500 ML IV ONE (15:45)
[2017-03-21] MEDS: DICLOFENAC SOD 1% GEL 100 GM TUBE EXT SCH ×2 (16:54→20:18)
--- NOTE | 2017-03-21 17:59 | Family Medicine Progress Note ---
Progress Note Date of Service Mar 21, 2017. Subjective Pt evaluation today including: conversation w/ patient, conversation w/ family , physical exam, chart review, lab review Patient continues to feel weak, dizzy and fatigued. Constitutional: No fever, No chills, No fatigue Respiratory: No cough, No sputum, No wheezing, No shortness of breath Cardiovascular: No chest pain, No palpitations Abdomen: + nausea, No pain, No vomiting, No diarrhea Male : No dysuria Medications Current Inpatient Medications Medications (Trade) Dose Ordered Sig/Jessica Route Start Time Stop Time Status Last Admin Dose Admin Aspirin (Ecotrin Tab) 325 mg Q2D PO 03/22/17 09:00 04/21/17 08:59 Simvastatin (Zocor Tab) 40 mg DAILY PO 03/21/17 09:00 04/20/17 08:59 03/21/17 08:02 40 MG Acetaminophen (Tylenol Tab) 650 mg Q4H PRN PO 03/20/17 17:15 04/19/17 17:14 03/21/17 15:16 650 MG Al Hydrox/Mg Hydrox/Simethicone (Maalox Max Susp) 15 ml Q4H PRN PO 03/20/17 17:15 04/19/17 17:14 Magnesium Hydroxide (Milk Of Magnesia Susp) 30 ml Q12H PRN PO 03/20/17 17:15 04/19/17 17:14 Ondansetron HCl (Zofran Inj) 4 mg Q6H PRN IV 03/20/17 17:15 04/19/17 17:14 Polyethylene (Miralax Powder Packet) 17 gm DAILY PRN PO 03/20/17 17:15 04/19/17 17:14 Glucose (Glucose 40% Gel) 15-30 GRAMS 15 GRAMS... UD PRN PO 03/20/17 20:00 04/19/17 19:59 Glucose (Glucose Chew Tab) 4-8 Tablets 4 Tabl... UD PRN PO 03/20/17 20:00 04/19/17 19:59 Dextrose (Dextrose 50% 50ML Syringe) 25-50ML OF 50% DW IV FOR... UD PRN IV 03/20/17 20:00 04/19/17 19:59 Glucagon (Glucagon Inj) 1 mg UD PRN SQ 03/20/17 20:00 04/19/17 19:59 Piperacillin Sod/ Tazobactam Sod 3.375 gm/Dextrose 115 ml @ 28.75 mls/ hr Q8H IV 03/21/17 02:00 03/22/17 17:59 03/21/17 17:50 28.75 MLS/HR Miscellaneous Information (Consult) 1 ea UD PRN N/A 03/20/17 20:00 03/22/17 19:59 Insulin Aspart (novoLOG ASPART) SLIDING SCALE G... Q6 SC 03/21/17 00:00 04/20/17 00:00 03/21/17 18:25 1 UNITS Ioversol (Optiray 320) 125 ml UD PRN IV 03/21/17 09:45 03/25/17 09:44 Sodium Chloride 500 ml @ 50 mls/hr Q10H ONCE IV 03/21/17 15:45 03/22/17 01:44 03/21/17 16:53 50 MLS/HR Diclofenac Sodium (Voltaren 1% Top Gel) 1 appln QID EXT 03/21/17 17:00 04/20/17 16:59 Objective Vital Signs Date Time Temp Pulse Resp B/P (MAP) Pulse Ox O2 Delivery O2 Flow Rate FiO2 03/21/17 16:00 Room Air 03/21/17 15:15 36.5 65 20 161/84 (109) 96 Room Air 03/21/17 12:00 Room Air 03/21/17 11:12 36.8 57 16 150/86 (107) 97 Room Air 57 03/21/17 08:34 36.9 64 18 158/95 (116) 98 Room Air 65 58 03/21/17 08:00 Room Air 03/21/17 04:00 Room Air 03/21/17 03:41 36.7 54 17 142/74 (96) 96 Room Air 03/20/17 23:59 Room Air 03/20/17 23:13 37.0 55 17 142/71 (94) 97 Room Air 03/20/17 20:00 Room Air 03/20/17 19:20 36.6 52 18 144/72 (96) 100 Room Air Physical Exam General Appearance: WD/WN, no apparent distress Neck: supple, no adenopathy, thyroid normal, no JVD Respiratory/Chest: chest non-tender, lungs clear, normal breath sounds, no respiratory distress, no accessory muscle use Cardiovascular: regular rate, rhythm, no edema, no murmur Abdomen: normal bowel sounds, non tender, soft, no organomegaly, no pulsatile mass Extremities: normal range of motion, normal inspection, no pedal edema, no calf tenderness Neurologic/Psychiatric: alert, normal mood/affect, oriented x 3 Laboratory Results Date Time Temp Pulse Resp B/P (MAP) Pulse Ox O2 Delivery O2 Flow Rate FiO2 03/21/17 16:00 Room Air 03/21/17 15:15 36.5 65 20 161/84 (109) 96 Room Air 03/21/17 12:00 Room Air 03/21/17 11:12 36.8 57 16 150/86 (107) 97 Room Air 57 03/21/17 08:34 36.9 64 18 158/95 (116) 98 Room Air 65 58 03/21/17 08:00 Room Air 03/21/17 04:00 Room Air 03/21/17 03:41 36.7 54 17 142/74 (96) 96 Room Air 03/20/17 23:59 Room Air 03/20/17 23:13 37.0 55 17 142/71 (94) 97 Room Air 03/20/17 20:00 Room Air 03/20/17 19:20 36.6 52 18 144/72 (96) 100 Room Air Assessment and Plan 66 yo male presents to the ED after 2 weeks of flu-like symptoms, chest tightness and dyspnea with exertion. Flu-like illness, Generalized weakness, Weight loss (15lbs on 2 weeks) cardiac vs infectious vs systolic CHF vs failure to thrive 03/21- After reviewing EKG, trops and ECHO, the patients sx are unlikely cardiac in etiology. In addition, the patient has remained afebrile with a normal WBC. Cultures, UA, influenza test are unremarkable for acute infection. Decided to deescalate abx. After hydration with fluids, patient's Cr recovered today and decided to do contrast CT imaging of the neck, thorax and abdomen. Normal finding found except for cirrhotic changes and hypodense lesions in the liver. These lesions have been seen in previous images, but appear different. Rads recommended MRI to rule out mets, HCC. Discussed with GI regarding outpatient follow up. Ordering MRI and AFP. Patient SHANTE likely due to dehydration 2/2 hypoglycemia. Flu-like illness, generalized weakness, weight loss Possible Sepsis due to unknown cause evidenced by SOFA score >=2 treated with boluses and multiple IV antibiotics. -Blood cultures pending -UA negative for infection -Urine culture pending -CXR unremarkable for cardiopulmonary pathology -Rapid Flu and PCR negative -Lactic Acid 2.7 -Dc'ed Vanc, continue Zosyn (day 1) Chest pain NYD, SOBOE new onset -Repeat trop x2--negative -EKG in the ED showed new T wave inversions in inferior leads -ECHO--no significant changes compared to previous studies -Daily weights, follow I/O -Orthostatic BP in the AM Cirrhosis 2/2 to AMBROSIO Liver lesions -Pt described h/o cirrhosis -Seen on abdominal CT--hypodense lesions -Rads recommends MRI to rule out HCC, mets -Ordered AFP in addition -Informed [facility] gastro (Dr. Lindsay) for outpatient follow up SHANTE--possibly 2/2 to poor oral intake, dehydration, hyperglycemia -Resolved -Patient received 2 L bolus in the ED and hypotension has been responsive to fluids -BMP in the am Chronic low back pain -Avoid narcotics due to h/o dependence -prn tramadol added -consider pain mx consult DMII uncontrolled -Better controlled today -continue to hold home glyburide, metformin -Continue sliding scale insulin -Glucose checks--Q6 hr while NPO, ac/hs with diet advancement Hyperkalemia -resolved Hypernatremia -Repeat BMP in the am CABG/HLD/Bradycardia/Hypotension -hold metoprolol -hold lisinopril -Cont simvastatin -hold flomax (bladder scan/straight cath if retaining) DVT ppx SCD, will revisit after acs rule out Full code Reviewed: Pt Seen/Exam by Me History feeling stronger but the back pain is really bothersome. Constitutional: denies: fever Respiratory: negative: short of breath Cardiovascular: denies chest pain General Appearance: no apparent distress Respiratory: lungs clear, no respiratory distress Cardiovascular: regular rate, rhythm Neurologic/Psychiatric: alert, oriented x 3 Skin Characteristics: warm/dry Assessment/Plan Resident Physician Supervision Note: I independently interviewed and examined the patient and verified the price history and physical, reviewed labs and image studies, discussed the case with the resident Dr. Piper and agree with the findings and care plan.
[2017-03-21 19:15] VITALS: BP 147/88; PULSE 57; TEMP 36.7; O2SAT 98
[2017-03-21] MEDS ORDERED: TRAMADOL HCL 50 MG TAB PO ONE (22:00)
[2017-03-22] MEDS ORDERED: GADOXETATE DISODIUM (NON-WT BASED PROCEDURE) IV PRN
[2017-03-22] MEDS ORDERED: VANCOMYCIN INJ 1,250 MG in SODIUM CHLORIDE 0.9% 250ML 250 ML IV SCH ×2
[2017-03-22 00:15] VITALS: BP 168/98; PULSE 68; TEMP 36.8; O2SAT 96
[2017-03-22] MEDS ORDERED: TRAMADOL HCL 50 MG TAB PO ONE ×2 (00:15→13:00)
[2017-03-22] MEDS: PIPERACILL/TAZOBAC IV 3.375 GM in DEXTROSE 5% 100ML 100 ML IV SCH ×2 (01:33→10:00)
[2017-03-22 03:20] VITALS: BP 144/81; PULSE 56; TEMP 36.7; O2SAT 96
[2017-03-22 05:17] LABS: BASO % 0.2 %; BASO ABS # 0.01 K/uL (0-0.2); EOS % 1.3 %; EOS ABS # 0.07 K/uL (0-0.5); HEMATOCRIT 36.1 % (42-52); IG# 0.02 K/uL (0.00-0.02); LYMPH % 28.3 %; LYMPH ABS # 1.49 K/uL (1.2-3.4); MEAN CELL VOLUME 87.6 fL (80-100); MEAN CORPUSCULAR HEMOGLOBIN 31.6 pg (25-34); MEAN PLATELET VOLUME 10.8 fL (7.4-10.4); MONO % 6.3 %; MONO ABS # 0.33 K/uL (0.11-0.59); NEUT % 63.5 %; NEUT ABS # 3.34 K/uL (1.4-6.5); PLATELET COUNT 100 K/uL (130-400); RED CELL DISTRIBUTION WIDTH CV 12.8 % (11.5-14.5); RED CELL DISTRIBUTION WIDTH SD 41.1 fL (36.4-46.3); WHITE BLOOD COUNT 5.26 K/uL (4.8-10.8)
[2017-03-22 05:49] LABS: CALCIUM 9.6 mg/dl (8.5-10.1); CREATININE 1.17 mg/dl (0.60-1.40); POTASSIUM 4.3 mmol/L (3.5-5.1)
--- NOTE | 2017-03-22 06:50 | DIAGNOSTIC IMAGING REPORT ---
MRI LIVER COMBO CLINICAL HISTORY: Hepatic masses. Weight loss. TONGUE CARCINOMA TECHNIQUE: Imaging was performed prior to and following IV contrast injection (9.8 cc intravenous Eovist). COMPARISON STUDY: CT scan of the abdomen pelvis dated 03/21/2017 FINDINGS: There is mild splenomegaly. There is no ductal dilatation. No solid renal masses are visualized. The pancreatic masses are visualized. There is no evidence of abdominal aortic aneurysm. There is a 7 mm hepatic cyst adjacent to the gallbladder fossa. There is a 3 mm hepatic cyst within the right lobe posteriorly. There are no hepatic lesions demonstrating suspicious restricted water diffusion. The liver has a cirrhotic morphology. There are a few scattered hepatic nodules which do not demonstrate arterial enhancement and are of relatively low signal on T2-weighted images. These likely represent regenerative nodules. There are no hepatic masses viewed as suspicious for metastatic disease or hepatocellular carcinoma. IMPRESSION: 1. Hepatic cirrhosis with scattered subcentimeter hepatic nodules, most consistent with a combination of hepatic cysts and regenerative nodules. There are no lesions at the current time viewed as suspicious for metastatic disease or hepatocellular carcinoma Electronically signed by: Soto Davis M.D. 03/22/2017 6:48 AM Dictated Date/Time: 03/22/2017 6:35 AM
[2017-03-22] MEDS: INSULIN ASPART 100 UNITS/ML 3 ML PEN SC SCH ×3 (07:00→11:00)
[2017-03-22 07:08] VITALS: BP 142/92; PULSE 59; TEMP 36.8; O2SAT 96
[2017-03-22] MEDS: DICLOFENAC SOD 1% GEL 100 GM TUBE EXT SCH ×2 (07:57→12:35)
[2017-03-22] MEDS: SIMVASTATIN 40 MG TAB PO SCH (07:58)
[2017-03-22] MEDS ORDERED: ASPIRIN 325 MG ECTAB PO SCH (09:00)
--- NOTE | 2017-03-22 10:25 | Discharge Instructions ---
Discharge Instructions Date of Service Mar 22, 2017. Admission Reason for Admission: Flu-Like Symptoms, Generalized Weakness Discharge Discharge Diagnosis / Problem: Dehydration Discharge Goals Goal(s): Improve function, Increase independence, Improve disease control Activity Recommendations Activity Limitations: resume your previous activity . Instructions / Follow-Up Instructions / Follow-Up Mr. Rosales, Nathan came to [facility] with flu-like symptoms including dizziness, weight loss, fatigue and shortness of breath. The goal of your stay was to investigate potential causes including; heart issues, infections and cancer. When you came into the hospital, you were dehydrated so we started you on fluids and antibiotics for potential infection. The test for you heart showed normal function compared to previous studies. In addition, you did not have a fever and infectious test have been negative. We did imaging of you neck, chest and abdomen to check for potential lesions. The imaging showed cirrhotic changes of the liver. While we have not determined a single cause for your symptoms, we have been able to exclude important causes that would require further hospitalization and intervention. We recommend that your next step take place with your primary care doctor. As you have remarked, you blood glucose and hypertension has been uncontrolled since you recently quitting opioid medications. High blood sugar can cause you to be dehydrated and have electrolyte imbalances. In addition, variations in blood pressure can cause these symptoms all well. As we discussed , it appears you have been under increased stress lately. All these things should be discussed with your primary care doctor. Finally, we recommend follow up with gastroenterology (Dr. Lindsay) for continued surveillance and prevention of liver cirrhosis. Continue previous medication with close follow up this week for blood glucose and blood pressure checks. Current Hospital Diet Patient's current hospital diet: Diabetes Type 2 Diet Discharge Diet Recommended Diet: Regular Diet Pending Studies Studies pending at discharge: no Laboratory Results Hemoglobin A1c Test 02/28/17 09:15 Range/Units Estimated Average Glucose 128 mg/dl Hemoglobin A1c 6.1 H 4.5-5.6 % Lipid Panel Test 02/28/17 09:15 Range/Units Triglycerides Level 103 0-150 mg/dl Cholesterol Level 129 0-200 mg/dl HDL Cholesterol 42 mg/dl LDL Cholesterol Direct 82 mg/dl Cholesterol/HDL Ratio 3.1 LDL Cholesterol, Calculated mg/dl Medical Emergencies . Who to Call and When: Medical Emergencies: If at any time you feel your situation is an emergency, please call 911 immediately. . Non-Emergent Contact Non-Emergency issues call your: Primary Care Provider, [employer] [facility] . . "Provider Documentation" section prepared by Santo Piper. . VTE Core Measure Inpt VTE Proph given/why not?: SCD's
[2017-03-22 11:26] LABS: CALCIUM 10.4 mg/dl (8.5-10.1); CREATININE 1.23 mg/dl (0.60-1.40); POTASSIUM 4.2 mmol/L (3.5-5.1)
[2017-03-22 12:00] VITALS: BP 152/98; PULSE 65; TEMP 36.7; O2SAT 98
[2017-03-22 12:21] VITALS: BP 152/98; PULSE 65; TEMP 36.7; O2SAT 98
[2017-03-22] MEDS ORDERED: MAGNESIUM SULFATE 1GM / D5W 1 GM in PREMIXED IN D5W 100 ML IV ONE (12:30)
[2017-03-22] MEDS ORDERED: NURSING VERBAL MED ORDER ONE (12:45)
--- NOTE | 2017-03-22 14:39 | Discharge Summary ---
Discharge Summary Date of Service Mar 22, 2017. Discharge Summary Admission Date: Mar 20, 2017 at 17:42 Discharge Date: Mar 22, 2017 Discharge Disposition: Home Principal Diagnosis: dehydration Immunizations: History of Tetanus Vaccine?: Unknown History of Pneumococcal: No History of Hepatitis B Vaccine: No Discharge Exam Review of Systems: Constitutional: + weakness, + fatigue, No fever, No chills, No sweats Respiratory: No cough, No sputum, No wheezing, No shortness of breath, No dyspnea on exertion Cardiovascular: No chest pain, No palpitations Abdomen: No pain, No nausea, No vomiting, No diarrhea Genitourinary - Female: No dysuria Physical Exam: General Appearance: WD/WN, no apparent distress Respiratory/Chest: chest non-tender, lungs clear, normal breath sounds Cardiovascular: regular rate, rhythm, no edema, + diastolic murmur Abdomen / GI: normal bowel sounds, non tender, soft Extremities: normal inspection, no calf tenderness Neurologic/Psychiatric: alert, normal mood/affect, oriented x 3 Skin: normal color, warm/dry, no rash Hospital Course 66 yo male PMH of CABG x3 and lingual neoplasm comes to [facility] after 2 weeks of flu-like symptoms. Predominant sx at admission included; weakness, UWL of 15lbs and decreased appetite, dyspnea with exertion. Diagnostic goal was to rule-out life threatening causes of symptoms; ACS, sepsis and neoplastic. The patient remained afebrile and had a normal WBC. In addition, flu PCR, blood cultures and urine cultures were negative. The patient received a ECHO, EKG and serial trop. These test were unremarkable for ACS and ECHO looked similar to past studies. During this period we held his Metoprolol. Also, Patient had a brief, asymptomatic episode of VTACH prior to discharge. The patient was found to have low magnesium. Mg was replaced and the patient was instructed to restart home dose of Metoprolol at discharge. Initially the patient was hypotensive and was shown to have an elevated Cr and grossly elevated glucose. The patient was started on IVF and insulin. His hypotension and elevated Cr were responsive to fluid. CT of the neck, thorax and abdomen were unremarkable aside from a mention of hypodense lesions of the liver. MRI of the liver suggested that the lesions were cirrhotic changes. Patient has been evaluated in the past by Dr. Lindsay regarding these changes. Nonetheless, AFP was pending at discharge and f/u with GI is recommended. If continues to have decreased appetite will need continue GI evaluation. The patient remarks that since quitting opioid medications (10 year history for lower back pain) one month ago that his blood sugar and blood pressures have been labile. Suspect component of anxiety and depression contributing to symptoms due to chronic pain and recent loss of family of pets. Patient reflects sadness, but denies suicide ideation at this time. Would recommend following up with patient mood in the outpatient setting. Total Time Spent: Greater than 30 minutes This includes examination of the patient, discharge planning, medication reconciliation, and communication with other providers. Discharge Instructions Please refer to the electronic Patient Visit Report (Discharge Instructions) for additional information. Additional Copies To Josué Muñoz M.D. Reviewed: Pt Seen/Exam by Me History feeling much better. continues to have back pain much better than yesterday. Constitutional: denies: fever Respiratory: negative: short of breath Cardiovascular: denies chest pain, denies palpitations General Appearance: no apparent distress Respiratory: lungs clear, no respiratory distress Cardiovascular: regular rate, rhythm Gastrointestinal: normal bowel sounds, non tender, soft Neurologic/Psychiatric: alert, oriented x 3 Skin Characteristics: warm/dry Assessment/Plan Resident Physician Supervision Note: I independently interviewed and examined the patient and verified the price history and physical, reviewed labs and image studies, discussed the case with the resident Dr. Piper and agree with the findings and care plan. Time spent in discharge 40min
== END 2017-03-22 14:01 | disposition home or self-care (01) | DRG 872 ==
LOC: C.EDB 11:59 → C.2E 17:42 → EDBEDREQ 17:59 → ENRESERV 18:49
PROVIDERS: ADMIT Family Medicine; ATTEND Family Medicine
DX: A41.9 Sepsis, unspecified organism (principal); N17.9 Acute kidney failure, unspecified; E87.0 Hyperosmolality and hypernatremia; E83.42 Hypomagnesemia; R63.4 Abnormal weight loss; R07.9 Chest pain, unspecified; R06.02 Shortness of breath; K74.60 Unspecified cirrhosis of liver; K75.81 Nonalcoholic steatohepatitis (NASH); K76.9 Liver disease, unspecified; E11.65 Type 2 diabetes mellitus with hyperglycemia; E87.5 Hyperkalemia; I95.9 Hypotension, unspecified; G89.29 Other chronic pain; M54.5 Low back pain; F11.21 Opioid dependence, in remission; F41.9 Anxiety disorder, unspecified; F32.9 Major depressive disorder, single episode, unspecified; E78.5 Hyperlipidemia, unspecified; I10 Essential (primary) hypertension; Z95.1 Presence of aortocoronary bypass graft; Z85.810 Personal history of malignant neoplasm of tongue; Z79.82 Long term (current) use of aspirin; Z79.84 Long term (current) use of oral hypoglycemic drugs; Z79.899 Other long term (current) drug therapy

== ENCOUNTER 2017-09-11 12:05 | Observation (INO) | payer BC ==
[~2017-09-11] VITALS: Ht 182.9 cm; Wt 86.8 kg
[~2017-09-11 12:05] MED LIST changes: -FENT25DI10 TD; -GLYB-108 PO; +GLYB2.5T7 PO; +MAGN400T6 PO; -METO50TA7 PO; +METO50TA8 PO; +OXYC-57 PO; -SIMV20TA5 OR; +SIMV40TA2 PO
[2017-09-11] MEDS ORDERED: SODIUM CHLORIDE 0.9% 1000ML 1,000 ML IV STA (12:17)
[2017-09-11] MEDS ORDERED: OXYC-609 PO (12:22)
[2017-09-11 12:33] LABS: BASO % 0.3 %; BASO ABS # 0.01 K/uL (0-0.2); EOS % 4.6 %; EOS ABS # 0.18 K/uL (0-0.5); LYMPH % 30.7 %; LYMPH ABS # 1.19 K/uL (1.2-3.4); MEAN CELL VOLUME 89.7 fL (80-100); MEAN CORPUSCULAR HEMOGLOBIN 30.8 pg (25-34); MEAN CORPUSCULAR HGB CONC 34.3 g/dl (32-36); MEAN PLATELET VOLUME 10.9 fL (7.4-10.4); MONO % 8.2 %; MONO ABS # 0.32 K/uL (0.11-0.59); NEUT % 56.2 %; NEUT ABS # 2.18 K/uL (1.4-6.5); PLATELET COUNT 120 K/uL (130-400); RED CELL DISTRIBUTION WIDTH SD 41.8 fL (36.4-46.3); WHITE BLOOD COUNT 3.88 K/uL (4.8-10.8)
--- NOTE | 2017-09-11 12:39 | DIAGNOSTIC IMAGING REPORT ---
CHEST ONE VIEW PORTABLE CLINICAL HISTORY: EVALUATE WEAKNESS dyspnea COMPARISON STUDY: 03/20/2017 FINDINGS: Prior median sternotomy. Diaphragms are smooth. Lungs are clear. IMPRESSION: No acute process. The above report was generated using voice recognition software. It may contain grammatical, syntax or spelling errors. Electronically signed by: Bc Epstein M.D. 09/11/2017 12:38 PM Dictated Date/Time: 09/11/2017 12:38 PM
[2017-09-11 12:43] LABS: INR 1.1 (0.9-1.1); PTT PATIENT 21.8 SECONDS (21.0-31.0)
[2017-09-11 13:03] LABS: ALBUMIN 3.6 gm/dl (3.4-5.0); ALKALINE PHOSPHATASE 37 U/L (45-117); ALT/SGPT 32 U/L (12-78); AST/SGOT 26 U/L (15-37); BLOOD UREA NITROGEN 19 mg/dl (7-18); CALCIUM 9.8 mg/dl (8.5-10.1); CARBON DIOXIDE 27 mmol/L (21-32); CREATININE 1.47 mg/dl (0.60-1.40); GLUCOSE 173 mg/dl (70-99); LIPASE 396 U/L (73-393); POTASSIUM 4.1 mmol/L (3.5-5.1); SODIUM 140 mmol/L (136-145); TOTAL PROTEIN 6.8 gm/dl (6.4-8.2)
[2017-09-11] MEDS ORDERED: OXYCODONE HCL IR 5 MG TAB (IMMEDIATE RELEASE) PO PRN (14:30)
[2017-09-11] MEDS ORDERED: ACETAMINOPHEN 325 MG TAB PO PRN (14:45)
[2017-09-11] MEDS ORDERED: MAGNESIUM HYDROXIDE SUSP 30 ML UDC PO PRN (14:45)
[2017-09-11] MEDS ORDERED: ONDANSETRON INJ 2 MG/ML 2 ML VIAL IV PRN (14:45)
[2017-09-11] MEDS ORDERED: ALUMINUM/MAGNESIUM/SIMETH (MAALOX MAX) 30 ML UDC PO PRN (14:45)
[2017-09-11] MEDS ORDERED: POLYETHYLENE (MIRALAX) 17 GM PACK PO PRN (14:45)
[2017-09-11] MEDS ORDERED: NITROGLYCERIN 0.4 MG SL PER TAB CHARGE SL PRN (14:45)
[2017-09-11] MEDS ORDERED: MoRPHine SULFATE 2 MG/ML CARP IV PRN (14:45)
[2017-09-11] MEDS ORDERED: ZOLPIDEM TARTRATE 5 MG TAB PO PRN (14:45)
--- NOTE | 2017-09-11 14:45 | History and Physical ---
History & Physical Date & Time of Service: Sep 11, 2017 at 14:37 Chief Complaint: Syncope Primary Care Physician: Josué Muñoz M.D. History of Present Illness Source: patient, hospital records, other 67 y/o M Hx CAD, HTN, HLD, DM II, BPH, chronic lower back pain. Presents following a syncopal episode. He was at a pain clinic with his due to recent worsening of his back pain when he became exceedingly lightheaded and diaphoretic. His reports that he was then staring and unresponsive for a brief period before losing consciousness. His LOC lasted less than 1 minute and he was fully oriented upon waking. The pt denies any CP, N/V or dysuria. While in the ER, the pt had a run of 14 beats of VT. He was asymptomatic during this episode. It is noted that he was prescribed a low dose of Oxycodone a few days prior and reports that he had taken approximately 4 doses of 5mg at 6 hour intervals. He was previously prescribed narcotics for a 10 year period. He had discontinued regular use 01/28 following a nerve ablation procedure. Initial labs are notable for mild, SHANTE, hypomagnesemia and mild Lipase elevation. The pt presented with dizziness and light-headedness 03/2017. This was at the time attributed to dehydration. He had an extensive workup including an echo which was normal aside form mild LVH. 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 No history of smoking, rarely drinks ETOH. Smoking Status: Never Smoker Alcohol Use: socially Marital Status: Housing status: lives with family Occupational Status: employed Immunizations History of Tetanus Vaccine?: Unknown History of Pneumococcal: No History of Hepatitis B Vaccine: No Allergies Coded Allergies: No Known Allergies (Verified , 09/11/17) Home Medications Scheduled Aspirin (Ecotrin Regular Strength), 325 MG PO Q2D Glyburide (Diabeta), 2.5 MG PO BID Lisinopril (Zestril), 10 MG PO DAILY Magnesium Oxide (Mag-Ox), 400 MG PO DAILY Metformin Hcl (Glucophage), 500 MG PO BID Metoprolol Succ (Toprol Xl) (Toprol-Xl), 50 MG PO BID Simvastatin (Zocor), 40 MG PO DAILY Tamsulosin Hcl (Flomax), 0.4 MG PO DAILY Scheduled PRN Oxycodone HCl (Oxycodone HCl), 5 MG PO Q6H PRN for Pain Review of Systems Constitutional: No fever, No chills, No sweats Eyes: No worsening of vision ENT: No hearing loss, No unusual epistaxis, No nasal symptoms Respiratory: No cough, No sputum, No wheezing Cardiovascular: No chest pain, No orthopnea, No PND Abdomen: No pain, No nausea, No vomiting Musculoskeletal: + joint pain (Chronic back pain as above) Genitourinary - Male: No hematuria, No dysuria Neurologic: + problem reported (Syncope as above), No memory loss, No paralysis Psychiatric: No depression symptoms Endocrine: No fatigue Hematologic / Lymphatic: No abnormal bleeding/bruising Integumentary: No rash Allergic / Immunologic: No environmental allergies Physical Exam Vital Signs Date Time Temp Pulse Resp B/P (MAP) Pulse Ox O2 Delivery O2 Flow Rate FiO2 09/11/17 13:53 47 17 133/71 100 Nasal Cannula 2.0 09/11/17 13:04 59 106/99 100 Nasal Cannula 2.0 09/11/17 12:44 52 09/11/17 12:37 99 Nasal Cannula 2.0 09/11/17 12:30 85 09/11/17 12:15 99 Room Air 09/11/17 12:15 36.8 54 17 134/76 99 Room Air General Appearance: WD/WN, no apparent distress Head: normocephalic Eyes: normal inspection ENT: normal ENT inspection, pharynx normal Neck: supple, no JVD Respiratory/Chest: chest non-tender, lungs clear, normal breath sounds Cardiovascular: regular rate, rhythm, no edema, no gallop, no JVD Abdomen/GI: normal bowel sounds, non tender, soft Back: normal inspection, no CVA tenderness Extremities/Musculoskelatal: normal inspection, no calf tenderness, normal capillary refill 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 tested, no motor/sensory deficits, alert, oriented x 3 Skin: normal color Diagnostics Laboratory Results Results Past 24 Hours Test 09/11/17 12:24 09/11/17 12:30 Range/Units White Blood Count 3.88 4.8-10.8 K/uL Red Blood Count 3.90 4.7-6.1 M/uL Hemoglobin 12.0 14.0-18.0 g/dL Hematocrit 35.0 42-52 % Mean Corpuscular Volume 89.7 80-100 fL Mean Corpuscular Hemoglobin 30.8 25-34 pg Mean Corpuscular Hemoglobin Concent 34.3 32-36 g/dl Platelet Count 120 130-400 K/uL Mean Platelet Volume 10.9 7.4-10.4 fL Neutrophils (%) (Auto) 56.2 % Lymphocytes (%) (Auto) 30.7 % Monocytes (%) (Auto) 8.2 % Eosinophils (%) (Auto) 4.6 % Basophils (%) (Auto) 0.3 % Neutrophils # (Auto) 2.18 1.4-6.5 K/uL Lymphocytes # (Auto) 1.19 1.2-3.4 K/uL Monocytes # (Auto) 0.32 0.11-0.59 K/uL Eosinophils # (Auto) 0.18 0-0.5 K/uL Basophils # (Auto) 0.01 0-0.2 K/uL RDW Standard Deviation 41.8 36.4-46.3 fL RDW Coefficient of Variation 13.0 11.5-14.5 % Immature Granulocyte % (Auto) 0.0 % Immature Granulocyte # (Auto) 0.00 0.00-0.02 K/uL Prothrombin Time 11.9 9.0-12.0 SECONDS Prothromb Time International Ratio 1.1 0.9-1.1 Activated Partial Thromboplast Time 21.8 21.0-31.0 SECONDS Partial Thromboplastin Ratio 0.8 Sodium Level 140 136-145 mmol/L Potassium Level 4.1 3.5-5.1 mmol/L Chloride Level 107 98-107 mmol/L Carbon Dioxide Level 27 21-32 mmol/L Anion Gap 5.0 3-11 mmol/L Blood Urea Nitrogen 19 7-18 mg/dl Creatinine 1.47 0.60-1.40 mg/dl Est Creatinine Clear Calc Drug Dose 54.3 ml/min Estimated GFR () 56.8 Estimated GFR (Non- 49.0 BUN/Creatinine Ratio 13.0 10-20 Random Glucose 173 70-99 mg/dl Calcium Level 9.8 8.5-10.1 mg/dl Magnesium Level 1.6 1.8-2.4 mg/dl Total Bilirubin 0.7 0.2-1 mg/dl Direct Bilirubin 0.2 0-0.2 mg/dl Aspartate Amino Transf (AST/SGOT) 26 15-37 U/L Alanine Aminotransferase (ALT/SGPT) 32 12-78 U/L Alkaline Phosphatase 37 45-117 U/L Troponin I < 0.015 0-0.045 ng/ml Pro-B-Type Natriuretic Peptide 83 0-900 pg/ml Total Protein 6.8 6.4-8.2 gm/dl Albumin 3.6 3.4-5.0 gm/dl Lipase 396 73-393 U/L Thyroid Stimulating Hormone (TSH) 1.910 0.300-4.500 uIu/ml Bedside Glucose 177 70-99 mg/dl Normal EKG Impression Assessment and Plan 67 y/o M Hx CAD, HTN, HLD, DM II, BPH, chronic lower back pain. Presents following a syncopal episode. He was at a pain clinic with his due to recent worsening of his back pain when he became exceedingly lightheaded and diaphoretic. His reports that he was then staring and unresponsive for a brief period before losing consciousness. His LOC lasted less than 1 minute and he was fully oriented upon waking. The pt denies any CP, N/V or dysuria. While in the ER, the pt had a run of 14 beats of VT. He was asymptomatic during this episode. It is noted that he was prescribed a low dose of Oxycodone a few days prior and reports that he had taken approximately 4 doses of 5mg at 6 hour intervals. He was previously prescribed narcotics for a 10 year period. He had discontinued regular use 01/28 following a nerve ablation procedure. Initial labs are notable for mild, SHANTE, hypomagnesemia and mild Lipase elevation. The pt presented with dizziness and light-headedness 03/2017. This was at the time attributed to dehydration. He had an extensive workup including an echo which was normal aside form mild LVH. 1) Syncope - asymptomatic NSVT in the ER - the pt will be monitored overnight. He will be evaluated by cardiology. As he had an extensive workup this past Mar , we will defer to cardiology for additional testing. He may benefit from ambulatory monitoring upon DC if no etiology is identified. His previous near-syncopal episode was attributed to dehydration. He was not clear how he had become dehydrated previously. It is noted that mild SHANTE is present both today and when he was admitted in March. 2) Mild SHANTE, hypomagnesemia - NS provided, Mg repleted - labs will be trended. He does not presently have any GI symptoms so that lipase will not be trended. 3) CAD - no evidence of ACS - cont ASA, Statin, B heydi 4) DM II - placed on a SS 5) HTN, HPL - cont Lisinopril, Toprol, Zocor Full code - Lovenox prophylaxis - total tie for this admit including review of labs, meds imaging, records - discussion with pt and ER attending - 33 min Resuscitation Status VTE Prophylaxis Will order VTE Prophylaxis: Yes
[2017-09-11] MEDS ORDERED: DEXTROSE 50% 50 ML SYR IV PRN (15:15)
[2017-09-11] MEDS ORDERED: GLUCAGON FOR INJ 1 MG VIAL IM PRN (15:15)
[2017-09-11] MEDS ORDERED: GLUCOSE 10 TABS/TUBE PO PRN (15:15)
[2017-09-11] MEDS ORDERED: GLUCOSE 40% GEL 15 GM TUBE PO PRN (15:15)
[2017-09-11] MEDS ORDERED: CARBOHYDRATES FOR HYPOGLYCEMIA PO PRN (15:15)
[2017-09-11 15:38] VITALS: BP 142/78; PULSE 52; TEMP 36.5; O2SAT 100; Ht 182.9 cm; Wt 86.8 kg
[2017-09-11] MEDS ORDERED: IV FLUIDS COMPLETED PRN (15:45)
[2017-09-11] MEDS: INSULIN ASPART 100 UNITS/ML 3 ML PEN SC SCH ×2 (16:15→20:51)
[2017-09-11] MEDS: SODIUM CHLORIDE 0.9% 1000ML 1,000 ML IV SCH (16:41)
[2017-09-11] MEDS: MAGNESIUM SULFATE 1GM / D5W 100 ML IV SCH ×2 (16:41→17:55)
--- NOTE | 2017-09-11 17:45 | EMERGENCY ROOM VISIT NOTE ---
History Report prepared by Pepper: Caprice Garcia Under the Supervision of: Dr. Josh Jolly D.O. First contact with patient: 12:09 Stated Complaint: SYNCOPE History of Present Illness The patient is a 67 year old male who presents to the Emergency Room with complaints of a syncopal episode happening shortly prior to arrival. The patient reports that he was at the pain management clinic for low back pain which is typical for him. He reports that his back pain has worsened over the last 4 days. He states that he takes 5 mg of Oxycodone for his pain and that he started taking this yesterday afternoon every 6-7 hours. The patient states that he was waiting to be seen in the pain management clinic when all of a sudden he felt light-headed, dizzy and was sweaty and nauseous. He denies having chest pain, shortness of breath, diarrhea, and vomiting. The patient reports that he started to fan himself with a magazine. The patient states that his was sitting next to him in the room but that the next thing he remembers is his running into the room from the hallway. The patient reports feeling better now. Per , the patient was staring at her but was not responding prior to his syncopal episode. The patient states that when he woke up that he knew where he was. The patient reports a history of a heart attack and a bypass surgery. Source of History: patient, spouse/significant other Onset: shortly prior to arrival Position: other (generalized ) Quality: other (syncopal episode ) Associated Symptoms: + diaphoresis, + nausea, + back pain (chronic), + weakness (light-headed, dizzy), No chest pain, No SOB, No vomiting, No diarrhea Review of Systems See HPI for pertinent positives & negatives. A total of 10 systems reviewed and were otherwise negative. Past Medical & Surgical Medical Problems: (1) Diabetes (2) Flu-like symptoms (3) Generalized weakness (4) Heart attack (5) Near syncope (6) Non-sustained ventricular tachycardia (7) Oral cancer Surgical Problems: (1) S/P triple vessel bypass Family History Cancer Diabetes mellitus FH: gallbladder disease FH: lung disease Heart disease Hypertension Kidney disease Social History Smoking Status: Never Smoker Alcohol Use: none Marital Status: Housing Status: lives with family Occupation Status: employed Current/Historical Medications Scheduled Aspirin (Ecotrin Regular Strength), 325 MG PO Q2D Glyburide (Diabeta), 2.5 MG PO BID Lisinopril (Zestril), 10 MG PO DAILY Magnesium Oxide (Mag-Ox), 400 MG PO DAILY Metformin Hcl (Glucophage), 500 MG PO BID Metoprolol Succ (Toprol Xl) (Toprol-Xl), 50 MG PO BID Simvastatin (Zocor), 40 MG PO DAILY Tamsulosin Hcl (Flomax), 0.4 MG PO DAILY Scheduled PRN Oxycodone HCl (Oxycodone HCl), 5 MG PO Q6H PRN for Pain Allergies Coded Allergies: No Known Allergies (Verified , 09/11/17) Physical Exam Vital Signs Date Time Temp Pulse Resp B/P (MAP) Pulse Ox O2 Delivery O2 Flow Rate FiO2 09/11/17 13:53 47 17 133/71 100 Nasal Cannula 2.0 09/11/17 13:04 59 106/99 100 Nasal Cannula 2.0 09/11/17 12:44 52 09/11/17 12:37 99 Nasal Cannula 2.0 09/11/17 12:30 85 09/11/17 12:15 99 Room Air 09/11/17 12:15 36.8 54 17 134/76 99 Room Air Physical Exam GENERAL: Sitting up in bed, alert, well appearing, well nourished, no distress, non-toxic EYE EXAM: normal conjunctiva. OROPHARYNX: no exudate, no erythema, lips, buccal mucosa, and tongue normal and mucous membranes are moist NECK: supple, no nuchal rigidity, no adenopathy, non-tender LUNGS: Clear to auscultation. Normal chest wall mechanics HEART: no murmurs, S1 normal and S2 normal ABDOMEN: abdomen soft, non-tender, normo-active bowel sounds, no masses, no rebound or guarding. BACK: Back is symmetrical on inspection and there is no deformity, no midline tenderness, no CVA tenderness. SKIN: no rashes and no bruising UPPER EXTREMITIES: upper extremities are grossly normal. LOWER EXTREMITIES: No pitting edema. NEURO EXAM: Normal sensorium, cranial nerves II-XII grossly intact, normal speech, no gross weakness of arms, no gross weakness of legs. Medical Decision & Procedures ER Provider Diagnostic Interpretation: Radiology results as stated below per my review and the radiologist's interpretation: CHEST ONE VIEW PORTABLE CLINICAL HISTORY: EVALUATE WEAKNESS dyspnea COMPARISON STUDY: 03/20/2017 FINDINGS: Prior median sternotomy. Diaphragms are smooth. Lungs are clear. IMPRESSION: No acute process. The above report was generated using voice recognition software. It may contain grammatical, syntax or spelling errors. Electronically signed by: Bc Epstein M.D. 09/11/2017 12:38 PM Dictated Date/Time: 09/11/2017 12:38 PM Laboratory Results 09/11/17 12:24 Red Blood Count 3.90, Mean Corpuscular Volume 89.7, Mean Corpuscular Hemoglobin 30.8, Mean Corpuscular Hemoglobin Concent 34.3, Mean Platelet Volume 10.9, Neutrophils (%) (Auto) 56.2, Lymphocytes (%) (Auto) 30.7, Monocytes (%) (Auto) 8.2, Eosinophils (%) (Auto) 4.6, Basophils (%) (Auto) 0.3, Neutrophils # (Auto) 2.18, Lymphocytes # (Auto) 1.19, Monocytes # (Auto) 0.32, Eosinophils # (Auto) 0.18, Basophils # (Auto) 0.01 09/11/17 12:24 Test 09/11/17 12:24 White Blood Count 3.88 K/uL (4.8-10.8) Red Blood Count 3.90 M/uL (4.7-6.1) Hemoglobin 12.0 g/dL (14.0-18.0) Hematocrit 35.0 % (42-52) Mean Corpuscular Volume 89.7 fL (80-100) Mean Corpuscular Hemoglobin 30.8 pg (25-34) Mean Corpuscular Hemoglobin Concent 34.3 g/dl (32-36) Platelet Count 120 K/uL (130-400) Mean Platelet Volume 10.9 fL (7.4-10.4) Neutrophils (%) (Auto) 56.2 % Lymphocytes (%) (Auto) 30.7 % Monocytes (%) (Auto) 8.2 % Eosinophils (%) (Auto) 4.6 % Basophils (%) (Auto) 0.3 % Neutrophils # (Auto) 2.18 K/uL (1.4-6.5) Lymphocytes # (Auto) 1.19 K/uL (1.2-3.4) Monocytes # (Auto) 0.32 K/uL (0.11-0.59) Eosinophils # (Auto) 0.18 K/uL (0-0.5) Basophils # (Auto) 0.01 K/uL (0-0.2) RDW Standard Deviation 41.8 fL (36.4-46.3) RDW Coefficient of Variation 13.0 % (11.5-14.5) Immature Granulocyte % (Auto) 0.0 % Immature Granulocyte # (Auto) 0.00 K/uL (0.00-0.02) Prothrombin Time 11.9 SECONDS (9.0-12.0) Prothromb Time International Ratio 1.1 (0.9-1.1) Activated Partial Thromboplast Time 21.8 SECONDS (21.0-31.0) Partial Thromboplastin Ratio 0.8 Anion Gap 5.0 mmol/L (3-11) Est Creatinine Clear Calc Drug Dose 54.3 ml/min Estimated GFR () 56.8 Estimated GFR (Non- 49.0 BUN/Creatinine Ratio 13.0 (10-20) Calcium Level 9.8 mg/dl (8.5-10.1) Magnesium Level 1.6 mg/dl (1.8-2.4) Total Bilirubin 0.7 mg/dl (0.2-1) Direct Bilirubin 0.2 mg/dl (0-0.2) Aspartate Amino Transf (AST/SGOT) 26 U/L (15-37) Alanine Aminotransferase (ALT/SGPT) 32 U/L (12-78) Alkaline Phosphatase 37 U/L (45-117) Troponin I < 0.015 ng/ml (0-0.045) Pro-B-Type Natriuretic Peptide 83 pg/ml (0-900) Total Protein 6.8 gm/dl (6.4-8.2) Albumin 3.6 gm/dl (3.4-5.0) Lipase 396 U/L (73-393) Thyroid Stimulating Hormone (TSH) 1.910 uIu/ml (0.300-4.500) Laboratory results per my review. Medications Administered Medications (Trade) Dose Ordered Sig/Jessica Route Start Time Stop Time Status Last Admin Dose Admin Sodium Chloride 1,000 ml @ 999 mls/hr Q1H1M STAT IV 09/11/17 12:17 7/31/18 13:17 DC 09/11/17 13:04 999 MLS/HR ECG Per My Interpretation Indication: syncope Rate (beats per minute): 51 Rhythm: sinus bradycardia Findings: other (left axis deviation, no PVCs, normal intervals ) ED Course ED COURSE: Vital signs were reviewed and showed bradycardia. The patients medical record was reviewed The above diagnostic studies were performed and reviewed. ED treatments and interventions as stated above. 1210: The patient was evaluated in room A11B. A complete history and physical examination was performed. 1217: Ordered Sodium Chloride 1000 ml @ 999 mls/hr IV. 1225: I reviewed the patient's case with Dr. Lay-Cardiology who said to hold off on any amiodarone because he feels that the patient's rate would not cause him to pass out. 1330: I updated the patient. 1420: Upon reevaluation, the patient is resting. I discussed the findings and the treatment plan with the patient. He expresses agreement and understanding. [facility] He will be evaluated for further management. Medical Decision Differential diagnosis includes etiologies such as vasovagal event, infection, hypoglycemia, electrolyte abnormalities, cardiac sources, intracerebral event, toxicologic, neurologic, as well as others were entertained. Patient is a 67-year-old male who presents the ER for syncopal episodes at pain management clinic. He notes he became very nauseous and diaphoretic and passed out. He has no other complaints at this time. He notes he was having lower back pain which is chronic for him and has been slightly worse over the past 5 days. CBC shows a mild leukopenia. Creatinine 1.4. BSG was elevated. LFTs bilirubin and troponin were negative. Lipase was 400. TSH 1.9. On my initial evaluation at bedside he was on the monitor and went into V. tach for a total of 15 beats. I reviewed this with Dr. Lay immediately following the event as he was in the ER. As the patient broke on his own he recommended holding on any antiarrhythmics. Patient remained on pads hooked up to code cart while in the ER. Patient was admitted for a further workup of syncope which I favor was secondary to V. tach. Medication Reconcilliation Current Medication List: was personally reviewed by me Blood Pressure Screening Patient's blood pressure: Normal blood pressure Consults Time Called: 1225 Consulting Physician: Dr. Lay- Cardiology Returned Call: 1225 I reviewed the patient's case with Dr. Lay-Cardiology who said to hold off on any amiodarone because he feels that the patient's rate would not cause him to pass out. Additional Consults: Time Called: 1410 Consulted Physician: Dr. Ying- [facility] Returned Call: 1420 Additional Comments: I reviewed the patient's case with Dr. Ying. He will evaluate the patient for further management. Impression Primary Impression: Non-sustained ventricular tachycardia Additional Impressions: S/P triple vessel bypass Syncope Scribe Attestation The scribe's documentation has been prepared under my direction and personally reviewed by me in its entirety. I confirm that the note above accurately reflects all work, treatment, procedures, and medical decision making performed by me. Departure Information Dispostion Being Evaluated By Hospitalist Referrals Josué Muñoz M.D. (PCP) Problem Qualifiers Additional Impressions: Syncope Syncope type: unspecified Qualified Codes: R55 - Syncope and collapse
[2017-09-11 19:18] VITALS: BP 125/65; PULSE 47; TEMP 36.7; O2SAT 96
[2017-09-11] MEDS ORDERED: METO50TA16 PO (20:00)
[2017-09-11] MEDS: METOPROLOL TARTRATE 50 MG TAB PO SCH (20:49)
[2017-09-11] MEDS ORDERED: SIMVASTATIN 40 MG TAB PO SCH (21:00)
[2017-09-11] MEDS ORDERED: ENOXAPARIN 40 MG/0.4 ML SYR SC SCH (21:00)
--- NOTE | 2017-09-11 21:35 | Cardiology Consultation ---
Cardiology Consultation Date of Consultation: Sep 11, 2017. Requesting Physician: Dr. Ying Reason for Consultation: Syncope Pt evaluation today including: conversation w/ patient, physical exam, lab review, review of studies, review of inpatient medication list History of Present Illness This is a very pleasant 67-year-old gentleman who has a history of coronary disease including myocardial infarction and bypass surgery in 1999 at [facility] (per patient, I do not see records). He has a history of sleepiness for which he has been evaluated and per the patient was associated with opioid use. He has long-standing asymptomatic bradycardia. More recently he has experienced several episodes of presyncope and syncope. One presyncopal event occurred March of this year, the syncopal event occurred the day of admission. The episodes are brief and have been observed, he feels they last seconds but other observers indicate that they are longer (his feels the episode was less than 1 minute in duration). He is not aware of palpitations, chest discomfort or shortness of breath around these times. He has noted no change in his exercise ability and has no exertional chest discomfort and has never used nitroglycerin. While in the emergency room he was observed to have a brief run of nonsustained ventricular tachycardia at a slow heart rate, around 110 bpm for 13 beats. This was asymptomatic. His heart rate does run slow and there seems to be some confusion about his beta-heydi dose. Past Medical/Surgical History (1) Diabetes (2) Heart attack Coronary artery disease Bypass surgery Family History Cancer Diabetes mellitus FH: gallbladder disease FH: lung disease Heart disease Hypertension Kidney disease Social History Smoking Status: Never Smoker History of Alcohol Use: Yes (socially) Review of Systems Constitutional: No fever, No weight loss, No weakness Respiratory: No cough, No wheezing, No shortness of breath, No dyspnea on exertion Cardiac: + see HPI, + problem reported (Syncope), No chest pain, No orthopnea, No PND, No edema, No palpitations Abdomen: No pain, No nausea, No vomiting, No diarrhea, No GI bleeding Male : No urinary frequency, No nocturia more than once/night, No slowing stream, No sexual dysfunction Neurologic: No paralysis, No weakness, No numbness/tingling, No balance problems Heme: No abnormal bleeding/bruising, No clotting problems Endo: No fatigue Skin: No problem reported Daytime sleepiness All Other Systems: Reviewed and Negative Allergies Coded Allergies: No Known Allergies (Verified , 09/11/17) Medications Current Inpatient Medications Medications (Trade) Dose Ordered Sig/Jessica Route Start Time Stop Time Status Last Admin Dose Admin Aspirin (Ecotrin Tab) 325 mg Q2D@0900 PO 09/12/17 09:00 10/12/17 08:59 Lisinopril (Zestril Tab) 10 mg DAILY PO 09/12/17 09:00 10/12/17 08:59 Magnesium Oxide (Mag-Ox Tab) 400 mg DAILY PO 09/12/17 09:00 10/12/17 08:59 Metoprolol Tartrate (Lopressor Tab) 50 mg BID PO 09/11/17 21:00 10/11/17 20:59 Simvastatin (Zocor Tab) 40 mg HS PO 09/11/17 21:00 10/11/17 20:59 09/11/17 20:51 40 MG Tamsulosin HCl (Flomax Cap) 0.4 mg DAILY PO 09/12/17 09:00 10/12/17 08:59 Oxycodone HCl (Roxicodone Immediate Rel Tab) 5 mg Q6H PRN PO 09/11/17 14:30 09/25/17 14:29 Enoxaparin Sodium (Lovenox Inj) 40 mg Q24H SC 09/11/17 21:00 10/11/17 20:59 09/11/17 20:50 40 MG Acetaminophen (Tylenol Tab) 650 mg Q4H PRN PO 09/11/17 14:45 10/11/17 14:44 Al Hydrox/Mg Hydrox/Simethicone (Maalox Max Susp) 15 ml Q4H PRN PO 09/11/17 14:45 10/11/17 14:44 Magnesium Hydroxide (Milk Of Magnesia Susp) 30 ml Q12H PRN PO 09/11/17 14:45 10/11/17 14:44 Zolpidem Tartrate (Ambien Tab) 5 mg HSZ PRN PO 09/11/17 14:45 10/11/17 14:44 Ondansetron HCl (Zofran Inj) 4 mg Q6H PRN IV 09/11/17 14:45 10/11/17 14:44 Nitroglycerin (Nitrostat Tab) 0.4 mg UD PRN SL 09/11/17 14:45 10/11/17 14:44 Morphine Sulfate (MoRPHine SULFATE INJ) 2 mg Q30M PRN IV 09/11/17 14:45 09/25/17 14:44 Polyethylene (Miralax Powder Packet) 17 gm DAILY PRN PO 09/11/17 14:45 10/11/17 14:44 Insulin Aspart (novoLOG ASPART) SLIDING SCALE G... ACHS SC 09/11/17 16:00 10/11/17 15:59 Glucose (Glucose 40% Gel) 15-30 GRAMS 15 GRAMS... UD PRN PO 09/11/17 15:15 10/11/17 15:14 Glucose (Glucose Chew Tab) 4-8 Tablets 4 Tabl... UD PRN PO 09/11/17 15:15 10/11/17 15:14 Dextrose (Dextrose 50% 50ML Syringe) 25-50ML 25ML FOR ... UD PRN IV 09/11/17 15:15 10/11/17 15:14 Glucagon (Glucagon Inj) 1 mg UD PRN IM 09/11/17 15:15 10/11/17 15:14 Carbohydrates (Carbohydrates For Hypoglycemia) 15-30 GRAMS 15 grams if BSG 54-69... UD PRN PO 09/11/17 15:15 10/11/17 15:14 Sodium Chloride 1,000 ml @ 125 mls/hr Q8H IV 09/11/17 15:15 09/12/17 07:14 09/11/17 16:41 125 MLS/HR Miscellaneous (Iv Fluids Completed) 1 ea PRN PRN N/A 09/11/17 15:45 09/11/18 15:44 Physical Exam Vital Signs Past 12 Hours Date Time Temp Pulse Resp B/P (MAP) Pulse Ox O2 Delivery O2 Flow Rate FiO2 09/11/17 19:18 36.7 47 20 125/65 (85) 96 Room Air 09/11/17 15:38 36.5 52 17 142/78 100 Room Air 09/11/17 15:11 55 18 128/68 100 09/11/17 13:53 47 17 133/71 100 Nasal Cannula 2.0 09/11/17 13:04 59 106/99 100 Nasal Cannula 2.0 09/11/17 12:44 52 09/11/17 12:37 99 Nasal Cannula 2.0 09/11/17 12:30 85 09/11/17 12:15 99 Room Air 09/11/17 12:15 36.8 54 17 134/76 99 Room Air Constitutional: General Apperance: heathly-appearing Level of Distress: NAD Psychiatric: Mental Status: active & alert Head: normocephalic Eyes: EOM: EOMI ENMT: normal ENT inspection, hearing grossly normal Neck: supple, no masses Lungs: Respiratory effort: no dyspnea, good air movement Auscultation: breath sounds normal, no wheezing Cardiovascular: Heart Auscultation: RRR, no murmurs, no rubs, no gallops, bradycardia Peripheral Pulses: Bruits: none appreciated Abdomen: Bowel Sounds: normal Inspection & Palpation: soft, no tenderness, guarding & rebound, no masses Musculoskeletal: normal strength (5/5 throughout) Extremities: no edema Neurologic: Cranial Nerves: grossly intact Sensation: grossly intact Data Laboratory Results: Last 24 Hours Test 09/11/17 12:24 09/11/17 12:30 09/11/17 16:15 09/11/17 16:30 White Blood Count 3.88 K/uL Red Blood Count 3.90 M/uL Hemoglobin 12.0 g/dL Hematocrit 35.0 % Mean Corpuscular Volume 89.7 fL Mean Corpuscular Hemoglobin 30.8 pg Mean Corpuscular Hemoglobin Concent 34.3 g/dl Platelet Count 120 K/uL Mean Platelet Volume 10.9 fL Neutrophils (%) (Auto) 56.2 % Lymphocytes (%) (Auto) 30.7 % Monocytes (%) (Auto) 8.2 % Eosinophils (%) (Auto) 4.6 % Basophils (%) (Auto) 0.3 % Neutrophils # (Auto) 2.18 K/uL Lymphocytes # (Auto) 1.19 K/uL Monocytes # (Auto) 0.32 K/uL Eosinophils # (Auto) 0.18 K/uL Basophils # (Auto) 0.01 K/uL RDW Standard Deviation 41.8 fL RDW Coefficient of Variation 13.0 % Immature Granulocyte % (Auto) 0.0 % Immature Granulocyte # (Auto) 0.00 K/uL Prothrombin Time 11.9 SECONDS Prothromb Time International Ratio 1.1 Activated Partial Thromboplast Time 21.8 SECONDS Partial Thromboplastin Ratio 0.8 Sodium Level 140 mmol/L Potassium Level 4.1 mmol/L Chloride Level 107 mmol/L Carbon Dioxide Level 27 mmol/L Anion Gap 5.0 mmol/L Blood Urea Nitrogen 19 mg/dl Creatinine 1.47 mg/dl Est Creatinine Clear Calc Drug Dose 54.3 ml/min Estimated GFR () 56.8 Estimated GFR (Non- 49.0 BUN/Creatinine Ratio 13.0 Random Glucose 173 mg/dl Calcium Level 9.8 mg/dl Magnesium Level 1.6 mg/dl Total Bilirubin 0.7 mg/dl Direct Bilirubin 0.2 mg/dl Aspartate Amino Transf (AST/SGOT) 26 U/L Alanine Aminotransferase (ALT/SGPT) 32 U/L Alkaline Phosphatase 37 U/L Troponin I < 0.015 ng/ml Pro-B-Type Natriuretic Peptide 83 pg/ml Total Protein 6.8 gm/dl Albumin 3.6 gm/dl Lipase 396 U/L Thyroid Stimulating Hormone (TSH) 1.910 uIu/ml Bedside Glucose 177 mg/dl 147 mg/dl Urine Color DK YELLOW Urine Appearance CLEAR Urine pH 5.0 Urine Specific [place] 1.020 Urine Protein NEG Urine Glucose (UA) NEG Urine Ketones NEG Urine Occult Blood NEG Urine Nitrite NEG Urine Bilirubin NEG Urine Urobilinogen NEG Urine Leukocyte Esterase NEG Test 09/11/17 20:38 Bedside Glucose 92 mg/dl Imaging: Chest x-ray is unremarkable EKG: Sinus bradycardia, otherwise unremarkable Telemetry reviewed: Sinus bradycardia, 113 beat run of nonsustained ventricular tachycardia at about 110 bpm in the emergency room. None since. Echocardiogram: An echocardiogram done March 21, 2017 shows normal left ventricular size and function with an ejection fraction of 55-60%. There is moderate inferolateral hypokinesis. This is felt to be unchanged from October 16, 2014. Assessment & Plan 1. Syncope: The specific cause of his syncope is not clear, however the symptoms are very suspicious for a cardiac arrhythmia. This could be bradycardia or tachycardia, to my knowledge he does not have significant left ventricular dysfunction (as of March) but that does not exclude a ventricular arrhythmia but makes it less likely. Transient bradycardia (either from sinus node dysfunction or AV block) also remains a possibility. Now with 2 episodes I think we need to try to identify a cause. I would keep him on telemetry overnight, if nothing shows up we can consider stress testing in the morning. We can also consider long-term monitoring. 2. Coronary artery disease: He has coronary disease and has had bypass surgery , however he does not have symptoms to suggest angina. On the other hand before his presentation with a myocardial infarction in 1999 he does not recall having angina. I think we need to consider a stress test to exclude asymptomatic progression of coronary artery disease. We can also get a measure of his ejection fraction at that time. I agree with trending cardiac enzymes. 3. Daytime sleepiness: Although this has been diagnosed as opiate use or some other abnormality in the he is quite bradycardic and it is possible it is related to his slow heart rate. I think to be worth a trial without beta- blockade although at the moment possible coronary disease and his nonsustained VT that may not be a good option for tonight. Further recommendations depending on what happens on telemetry and initial evaluation. Thank you for allowing me to participate in his care.
[2017-09-12] VITALS: BP_SYST 169; BP_SYST 182; BP_SYST 184; BP_DIAS 77; BP_DIAS 83; BP_DIAS 94; PULSE 53; PULSE 56; PULSE 59; TEMP 37; O2SAT 95
[2017-09-12] MEDS: SODIUM CHLORIDE 0.9% 1000ML 1,000 ML IV SCH (00:50)
[2017-09-12 03:49] VITALS: BP 132/71; PULSE 54; TEMP 36.7; O2SAT 97
[2017-09-12 07:06] VITALS: BP_SYST 126; BP_SYST 152; BP_SYST 156; BP_DIAS 76; BP_DIAS 79; BP_DIAS 80; PULSE 47; PULSE 54; TEMP 36.9; O2SAT 95
[2017-09-12 07:11] LABS: CALCIUM 9.1 mg/dl (8.5-10.1); CREATININE 0.99 mg/dl (0.60-1.40); POTASSIUM 4.2 mmol/L (3.5-5.1)
[2017-09-12] MEDS: METOPROLOL TARTRATE 50 MG TAB PO SCH (07:34)
[2017-09-12] MEDS: INSULIN ASPART 100 UNITS/ML 3 ML PEN SC SCH ×2 (07:34→12:02)
[2017-09-12] MEDS: MAGNESIUM SULFATE 1GM / D5W 100 ML IV SCH ×2 (08:48→10:14)
[2017-09-12] MEDS ORDERED: TAMSULOSIN HCL 0.4 MG CAP PO SCH (09:00)
[2017-09-12] MEDS ORDERED: ASPIRIN 325 MG ECTAB PO SCH (09:00)
[2017-09-12] MEDS ORDERED: MAGNESIUM OXIDE 400 MG TAB PO SCH (09:00)
[2017-09-12] MEDS ORDERED: LISINOPRIL 10 MG TAB PO SCH (09:00)
--- NOTE | 2017-09-12 10:41 | Cardiology Follow-Up ---
Subjective Date of Service: Sep 12, 2017. Pt evaluation today including: conversation w/ patient, conversation w/ family , physical exam, lab review, review of studies, review of inpatient medication list History of Present Illness This is a very pleasant 67-year-old gentleman who has a history of coronary disease including myocardial infarction and bypass surgery in 1999 at [facility] (per patient, I do not see records). He has a history of sleepiness for which he has been evaluated and per the patient was associated with opioid use. He has long-standing asymptomatic bradycardia. More recently he has experienced several episodes of presyncope and syncope. One presyncopal event occurred March of this year, the syncopal event occurred the day of admission. The episodes are brief and have been observed, he feels they last seconds but other observers indicate that they are longer (his feels the episode was less than 1 minute in duration). He is not aware of palpitations, chest discomfort or shortness of breath around these times. He has noted no change in his exercise ability and has no exertional chest discomfort and has never used nitroglycerin. While in the emergency room he was observed to have a brief run of nonsustained ventricular tachycardia at a slow heart rate, around 110 bpm for 13 beats. This was asymptomatic. His heart rate does run slow and there seems to be some confusion about his beta-heydi dose. Today he feels well, he has had no further lightheadedness, dizziness, presyncope or syncope. He denies palpitations. His is present at his bedside today and notes that he has continued to have some element of sleepiness although it is improved from when it was evaluated in the past. Social History Smoking Status: Never Smoker History of Alcohol Use: Yes (socially) Review of Systems Respiratory: No shortness of breath Cardiac: + see HPI, No chest pain Medications Cardiovascular: Item Value Date Time Aspirin 325 mg 09/12/17 0900 (Ecotrin Tab) Q2D@0900/PO 09/12/17 0735 Lisinopril 10 mg 09/12/17 0900 (Zestril Tab) DAILY/PO 09/12/17 0736 Magnesium Oxide 400 mg 09/12/17 0900 (Mag-Ox Tab) DAILY/PO 09/12/17 0735 Metoprolol 50 mg 09/11/17 2100 Tartrate BID/PO (Lopressor Tab) Simvastatin 40 mg 09/11/172099 (Zocor Tab) HS/PO 09/11/172050 Enoxaparin Sodium 40 mg 09/11/172099 (Lovenox Inj) Q24H/SC 09/11/172049 Objective Vital Signs Past 12 Hours Date Time Temp Pulse Resp B/P (MAP) Pulse Ox O2 Delivery O2 Flow Rate FiO2 09/12/17 07:06 36.9 47 17 156/80 (105) 95 Room Air 54 126/79 (95) 54 152/76 (101) 09/12/17 03:49 36.7 54 17 132/71 (91) 97 Room Air 09/12/17 00:00 37.0 53 18 169/83 (111) 95 Room Air 59 182/94 (123) 56 184/77 (112) 09/11/17 23:59 Room Air Last Recorded Weight-Kilograms: 86.800 Physical Exam Constitutional: General Apperance: heathly-appearing Level of Distress: NAD Lungs: Auscultation: breath sounds normal Cardiovascular: Heart Auscultation: RRR, no murmurs, bradycardia Extremities: no edema Data Laboratory Results: Last 24 Hours Test 09/11/17 12:24 09/11/17 12:30 09/11/17 16:15 09/11/17 16:30 White Blood Count 3.88 K/uL Red Blood Count 3.90 M/uL Hemoglobin 12.0 g/dL Hematocrit 35.0 % Mean Corpuscular Volume 89.7 fL Mean Corpuscular Hemoglobin 30.8 pg Mean Corpuscular Hemoglobin Concent 34.3 g/dl Platelet Count 120 K/uL Mean Platelet Volume 10.9 fL Neutrophils (%) (Auto) 56.2 % Lymphocytes (%) (Auto) 30.7 % Monocytes (%) (Auto) 8.2 % Eosinophils (%) (Auto) 4.6 % Basophils (%) (Auto) 0.3 % Neutrophils # (Auto) 2.18 K/uL Lymphocytes # (Auto) 1.19 K/uL Monocytes # (Auto) 0.32 K/uL Eosinophils # (Auto) 0.18 K/uL Basophils # (Auto) 0.01 K/uL RDW Standard Deviation 41.8 fL RDW Coefficient of Variation 13.0 % Immature Granulocyte % (Auto) 0.0 % Immature Granulocyte # (Auto) 0.00 K/uL Prothrombin Time 11.9 SECONDS Prothromb Time International Ratio 1.1 Activated Partial Thromboplast Time 21.8 SECONDS Partial Thromboplastin Ratio 0.8 Sodium Level 140 mmol/L Potassium Level 4.1 mmol/L Chloride Level 107 mmol/L Carbon Dioxide Level 27 mmol/L Anion Gap 5.0 mmol/L Blood Urea Nitrogen 19 mg/dl Creatinine 1.47 mg/dl Est Creatinine Clear Calc Drug Dose 54.3 ml/min Estimated GFR () 56.8 Estimated GFR (Non- 49.0 BUN/Creatinine Ratio 13.0 Random Glucose 173 mg/dl Calcium Level 9.8 mg/dl Magnesium Level 1.6 mg/dl Total Bilirubin 0.7 mg/dl Direct Bilirubin 0.2 mg/dl Aspartate Amino Transf (AST/SGOT) 26 U/L Alanine Aminotransferase (ALT/SGPT) 32 U/L Alkaline Phosphatase 37 U/L Troponin I < 0.015 ng/ml Pro-B-Type Natriuretic Peptide 83 pg/ml Total Protein 6.8 gm/dl Albumin 3.6 gm/dl Lipase 396 U/L Thyroid Stimulating Hormone (TSH) 1.910 uIu/ml Bedside Glucose 177 mg/dl 147 mg/dl Urine Color DK YELLOW Urine Appearance CLEAR Urine pH 5.0 Urine Specific [place] 1.020 Urine Protein NEG Urine Glucose (UA) NEG Urine Ketones NEG Urine Occult Blood NEG Urine Nitrite NEG Urine Bilirubin NEG Urine Urobilinogen NEG Urine Leukocyte Esterase NEG Test 09/11/17 20:38 09/12/17 05:13 09/12/17 07:24 Bedside Glucose 92 mg/dl 80 mg/dl Sodium Level 143 mmol/L Potassium Level 4.2 mmol/L Chloride Level 112 mmol/L Carbon Dioxide Level 24 mmol/L Anion Gap 7.0 mmol/L Blood Urea Nitrogen 17 mg/dl Creatinine 0.99 mg/dl Est Creatinine Clear Calc Drug Dose 80.6 ml/min Estimated GFR () 91.6 Estimated GFR (Non- 79.0 BUN/Creatinine Ratio 17.1 Random Glucose 65 mg/dl Calcium Level 9.1 mg/dl Magnesium Level 1.6 mg/dl Telemetry reviewed: Sinus bradycardia predominantly, heart rates in the 40s at times. No further VT overnight. Assessment and Plan 1. Syncope: The specific cause of his syncope is not clear, however the symptoms are very suspicious for a cardiac arrhythmia. This could be bradycardia or tachycardia, to my knowledge he does not have significant left ventricular dysfunction (as of March) but that does not exclude a ventricular arrhythmia but makes it less likely. Transient bradycardia (either from sinus node dysfunction or AV block) also remains a possibility. Now with 2 episodes I think we need to try to identify a cause. There is been no arrhythmia identified on telemetry monitoring, other than bradycardia. I will plan stress testing today. We can also consider long-term monitoring. 2. Coronary artery disease: He has coronary disease and has had bypass surgery , however he does not have symptoms to suggest angina. On the other hand before his presentation with a myocardial infarction in 1999 he does not recall having angina until the event itself. I think we need to consider a stress test to exclude asymptomatic progression of coronary artery disease. We can also get a measure of his ejection fraction at that time. 3. Daytime sleepiness: Although this has been diagnosed as opiate use or some other abnormality in the past he is quite bradycardic and it is possible it is related to his slow heart rate. I think to be worth a trial without beta- blockade, his beta-blockade was held this morning due to bradycardia. Further recommendations depending on his stress test. Thank you for allowing me to participate in his care.
[2017-09-12] MEDS ORDERED: PERFLUTREN LIPID MICROSPHERE (DEFINITY) IV ONE (11:47)
[2017-09-12 12:06] VITALS: BP 119/69; PULSE 57; TEMP 36.7; O2SAT 97
--- NOTE | 2017-09-12 12:33 | Discharge Instructions ---
Discharge Instructions Date of Service Sep 12, 2017. Admission Reason for Admission: Syncope,Non-Sustained Ventricular Tachycardia Discharge Discharge Diagnosis / Problem: Syncope,Non-Sustained Ventricular Tachycardia, bradycardia Discharge Goals Goal(s): Improve disease control, Diagnostic testing, Therapeutic intervention Activity Recommendations Activity Limitations: as noted below Exercise/Sports Limitations: gradually increase as tolerated Shower/Bathe: no limitations Driving or Machine Use: No driving until cleared by your drafter electrical . Instructions / Follow-Up Instructions / Follow-Up You were admitted for syncope which means passing out. This may be due to a low heart rate. Do not take your metoprolol after discharge from the hospital as this lowers your heart rate. You had a stress test which was normal. You had a loop recorder implanted which will be able to keep track of every beat of your heart to help determine if you have a cardiac arrhythmia. Please follow- up with drafter electrical as directed Please follow-up with your PCP and pain management within 1-2 weeks. Current Hospital Diet Patient's current hospital diet: AHA Diet (Heart Healthy), Diabetes Type 2 Diet Discharge Diet Recommended Diet: AHA Diet (Heart Healthy), Diabetes Type 2 Diet Procedures Procedures Performed: Stress echocardiogram Chest x-ray Loop recorder implantation Pending Studies Studies pending at discharge: no Laboratory Results Hemoglobin A1c Test 08/09/17 08:40 Range/Units Estimated Average Glucose 123 mg/dl Hemoglobin A1c 5.9 H 4.5-5.6 % Lipid Panel Test 08/09/17 08:40 Range/Units Triglycerides Level 161 H 0-150 mg/dl Cholesterol Level 117 0-200 mg/dl HDL Cholesterol 35 mg/dl LDL Cholesterol Direct 68 mg/dl Cholesterol/HDL Ratio 3.3 LDL Cholesterol, Calculated mg/dl Medical Emergencies . Who to Call and When: Medical Emergencies: If at any time you feel your situation is an emergency, please call 911 immediately. . Non-Emergent Contact Non-Emergency issues call your: Primary Care Provider, [facility] Call Non-Emergent contact if: temperature is above 101, you have any medication questions . . "Provider Documentation" section prepared by Josefina Singletary. .
[2017-09-12] MEDS ORDERED: LACTATED RINGER'S 1000ML 1,000 ML IV ONE (12:51)
--- NOTE | 2017-09-12 13:07 | EXERCISE STRESS ECHO ---
*NOTICE TO RECEIVING CONSTITUTION PARTY AGENCY This information is strictly Confidential and protected under [place] law. [place] law prohibits you from making any further disclosure of this information unless further disclosure is expressly permitted by the written consent of the person to whom it pertains or is authorized by law. A general authorization for the release of medical or other information is not sufficient for this purpose. Hospital accepts no responsibility if the information is made available to any other person, INCLUDING THE PATIENT. Interpretation Summary * Name: MITCH PINEDA Study Date: 09/12/2017 10:25 AM BP: 148/67 mmHg * Patient Location: .2T\S\E219\S\1 HR: 49 * : 1950 (M/d/yyyy) Gender: Male Height: 72 in * Age: 67 yrs Ethnicity: CA Weight: 191 lb * Ordering Physician: Mitch Lay * Performed By: Shanna White RDCS * * Reason For Study: SYNCOPE, NSVT, CAD * BSA: 2.1 m2 * -- Conclusions -- * The left ventricle is borderline dilated. * There is mild asymmetric left ventricular hypertrophy. * Left ventricular systolic function is normal. * The left atrium is mildly dilated. * Normal exercise echocardiogram without evidence of inducible ischemia * Hypertensive response to exercise Procedure Details * ECHOEX, CPT #[id number] * ECHO DOPPLER, CPT #[id number] * ECHO COLOR FLOW, CPT #[id number] * A contrast injection of Definity was performed to improve assessment of LV function. * Contrast was injected into an intravenous site in the right arm. * One vial of Definity ultrasound contrast was diluted in normal saline to a total volume of 10 ml. A total of '3' ml of solution was administered during imaging. * Lot # [id number] of Definity utilized for procedure. * Expiration date 08/30. * The attending nurse who injected the contrast agent was COLLIN CHADWICK RN. Left Ventricular Findings with Stress * Normal exercise echocardiogram without evidence of inducible ischemia Hypertensive response to exercise Left Ventricle * The left ventricle is borderline dilated. * There is mild asymmetric left ventricular hypertrophy. * Ejection Fraction = 65-70%. * Left ventricular systolic function is normal. * The left ventricular wall motion is normal at rest. Right Ventricle * The right ventricle is normal in size and function. Atria * The left atrium is mildly dilated. * Right atrial size is normal. Mitral Valve * The mitral valve is grossly normal. * Significant mitral regurgitation is absent. Tricuspid Valve * The tricuspid valve anatomy is normal. * Significant tricuspid regurgitation is absent. Aortic Valve * The aortic valve is normal in structure and function. * The aortic valve is trileaflet. * No hemodynamically significant valvular aortic stenosis. * There is no significant aortic regurgitation. Pericardium * There is no pericardial effusion. Stress Parameters * Normal baseline electrocardiogram. * Stress ECG: No ST changes. No arrhythmias. * Rest heart rate was '49' BPM. * Rest blood pressure was '148/67' * Maximum heart rate achieved was 126 bpm. * Maximum heart rate was 81 % of maximum age-predicted heart rate. * Maximum blood pressure was '180/47' * Total exercise time was '7:51' * Maximum exercise MET level achieved was '9.80' METS * Maximum treadmill speed was '3.40' miles per hour. * Maximum treadmill elevation was '14.00'% grade. * Exercise was terminated due to 'fatigue' * Target Heart Rate was not achieved due to fatigue. * The patient exhibited dyspnea during exercise. * Exercise was stopped due to fatigue. Left Ventricular Findings with Stress * Baseline EKG was normal There are no significant ST or T-wave changes during exercise or recovery Baseline echocardiogram was normal with normal wall motion There was normal augmentation of all segments without inducible wall motion abnormalities at peak exertion [place] treadmill score: 8 (low risk) There was a hypertensive response to exercise MMode 2D Measurements and Calculations IVSd 1.5 cm IVSs 2.1 cm LVIDd 5.4 cm LVIDs 3.3 cm LVPWd 1.1 cm LVPWs 1.7 cm IVS/LVPW 1.4 FS 39.6 % EDV(Teich) 142.5 ml ESV(Teich) 43.4 ml EF(Teich) 69.6 % EDV(cubed) 159.2 ml ESV(cubed) 35.2 ml EF(cubed) 77.9 % % IVS thick 38.8 % % LVPW thick 57.5 % LV mass(C)d 294.1 grams LV mass(C)dI 140.8 grams/m\S\2 LV mass(C)s 263.6 grams LV mass(C)sI 126.2 grams/m\S\2 SV(Teich) 99.1 ml SI(Teich) 47.5 ml/m\S\2 SV(cubed) 124.0 ml SI(cubed) 59.4 ml/m\S\2 ACS 1.1 cm LA dimension 5.1 cm asc Aorta Diam 3.4 cm LVOT diam 1.9 cm LVOT area 2.9 cm\S\2 LVAd ap4 35.8 cm\S\2 LVLd ap4 8.3 cm EDV(MOD-sp4) 125.6 ml EDV(sp4-el) 131.1 ml LVAs ap4 18.1 cm\S\2 LVLs ap4 6.6 cm ESV(MOD-sp4) 40.9 ml ESV(sp4-el) 42.2 ml EF(MOD-sp4) 67.4 % EF(sp4-el) 67.8 % LVAd ap2 35.7 cm\S\2 LVLd ap2 8.8 cm EDV(MOD-sp2) 123.2 ml EDV(sp2-el) 122.4 ml LVAs ap2 18.5 cm\S\2 LVLs ap2 7.6 cm ESV(MOD-sp2) 37.5 ml ESV(sp2-el) 38.4 ml EF(MOD-sp2) 69.6 % EF(sp2-el) 68.6 % LVLd %diff 6.0 % EDV(MOD-bp) 124.3 ml LVLs %diff 12.9 % ESV(MOD-bp) 41.4 ml EF(MOD-bp) 66.7 % SV(MOD-sp4) 84.7 ml SI(MOD-sp4) 40.5 ml/m\S\2 SV(MOD-sp2) 85.7 ml SI(MOD-sp2) 41.0 ml/m\S\2 SV(MOD-bp) 82.9 ml SI(MOD-bp) 39.7 ml/m\S\2 SV(sp4-el) 88.9 ml SI(sp4-el) 42.6 ml/m\S\2 SV(sp2-el) 84.0 ml SI(sp2-el) 40.2 ml/m\S\2 Doppler Measurements and Calculations MV E max marla 100.3 cm/sec MV A max marla 97.6 cm/sec MV E/A 1.0 MV dec time 0.21 sec Ao V2 max 188.9 cm/sec Ao max PG 14.3 mmHg Ao max PG (full) 3.4 mmHg DEVI(V,A) 2.6 cm\S\2 DEVI(V,D) 2.6 cm\S\2 LV V1 max PG 10.8 mmHg LV V1 max 164.6 cm/sec MR max marla 365.8 cm/sec MR max PG 53.5 mmHg PA V2 max 73.3 cm/sec PA max PG 2.2 mmHg
[2017-09-12] MEDS ORDERED: CEFAZOLIN SOD 1000MG/7.5 ML IV PUSH IV SCH (13:10)
[2017-09-12] MEDS ORDERED: WATER, STERILE FOR INJ 20 ML VIAL ONE (13:26)
[2017-09-12] MEDS ORDERED: CEFAZOLIN SOD 1 GM VIAL ONE (13:26)
[2017-09-12] MEDS ORDERED: BACITRACIN OINT 0.9 GM PKT ONE (13:45)
[2017-09-12] MEDS ORDERED: LIDOCAINE HCL 1% 20 ML VIAL ONE (13:45)
[2017-09-12] MEDS ORDERED: BACITRACIN 50000 UNIT VIAL ONE (13:45)
--- NOTE | 2017-09-12 13:51 | [facility] Operative Report ---
Operative Report Operative Date Sep 12, 2017. Pre-Operative Diagnosis Syncope Post-Operative Diagnosis Same Procedure(s) Performed Loop recorder implantation Surgeon Dr. Lay Box Storage Worker Surgeon(s) None Estimated Blood Loss 2 cc Findings Good loop recorder position Specimens None Anesthesia Local, no sedation Complication(s) None Disposition PCU Description of Procedure After obtaining informed consent for the procedure, the patient was brought to the laboratory having had nothing by mouth after midnight. The patient was prepped and draped in the standard sterile manner for a loop recorder implantation. An area at the fourth left intercostal space and 1 cm left of the left sternal border was infiltrated with 1% lidocaine local anesthetic and a 0.5 cm incision was made through the skin. Using the loop recorder insertion tool the loop recorder was inserted through the incision at a 45 downward and leftward angle. The incision was closed with a subcutaneous continuous closure of 4-0 Vicryl followed by a running subcuticular skin closure of 4-0 Vicryl. Steri- Strips were applied and bacitracin ointment was placed on the incision. A dressing was applied. I attest to the content of the Intraoperative Record and any orders documented therein. Any exceptions are noted below.
--- NOTE | 2017-09-12 13:59 | Discharge Summary ---
Discharge Summary Date of Service Sep 12, 2017. Discharge Summary Admission Date: Sep 11, 2017 at 14:35 Discharge Date: Sep 12, 2017 Discharge Disposition: Home Immunizations: History of Tetanus Vaccine?: Unknown History of Pneumococcal: No History of Hepatitis B Vaccine: No Medication Reconciliation Continued Medications: Aspirin (Ecotrin Regular Strength) 325 Mg Tab 325 MG PO Q2D Glyburide (Diabeta) 2.5 Mg Tab 2.5 MG PO BID Lisinopril (Zestril) 5 Mg Tab 10 MG PO DAILY, TAB Magnesium Oxide (Mag-Ox) 400 Mg Tab 400 MG PO DAILY, TAB Metformin Hcl (Glucophage) 500 Mg Tab 500 MG PO BID, TAB Oxycodone HCl (Oxycodone HCl) 5 Mg Tab 5 MG PO Q6H PRN for Pain Simvastatin (Zocor) 40 Mg Tab 40 MG PO DAILY Tamsulosin Hcl (Flomax) 0.4 Mg Cap 0.4 MG PO DAILY, CAP Discontinued Medications: Metoprolol Tartrate (Lopressor) (Lopressor) 50 Mg Tab 1 TAB PO BID for 90 Days, #180 TAB 3 Refills Hospital Course Total Time Spent: Greater than 30 minutes This includes examination of the patient, discharge planning, medication reconciliation, and communication with other providers. Discharge Instructions Please refer to the electronic Patient Visit Report (Discharge Instructions) for additional information. Additional Copies To Mitch Lay M.D.
[2017-09-12] MEDS ORDERED: KETOROLAC TROMETHAMINE 10 MG TAB PO PRN (14:00)
[2017-09-12] MEDS ORDERED: ACETAMINOPHEN 325 MG TAB PO PRN (14:00)
[2017-09-12 14:06] VITALS: BP 140/74; PULSE 46; TEMP 36.5; O2SAT 97
--- NOTE | 2017-09-12 14:07 | Discharge Instructions ---
Discharge Instructions Date of Service Sep 12, 2017. Admission Reason for Admission: Passing out Discharge Discharge Diagnosis / Problem: Loop recorder implantation Discharge Goals Goal(s): Diagnostic testing Activity Recommendations Activity Limitations: per Instructions/Follow-up section . Instructions / Follow-Up Instructions / Follow-Up ACTIVITY RECOMMENDATIONS: * Do not raise affected arm over head for 2 weeks. SPECIAL CARE INSTRUCTIONS: * If bleeding occurs, apply direct pressure to area for 5 minutes. * Call your doctor if you have severe pain, fever, drainage or bleeding at site. * Keep dressing on and dry. * Keep any scheduled doctor's appointment. * Implant Card - hand held device with website information given. SKIN IRRITATION: * You may experience some redness and/or swelling in the area where radiation was administered. If any skin irritation occurs, please contact your family physician. FOLLOW UP VISIT: Keep any scheduled doctor appointments. Current Hospital Diet Patient's current hospital diet: AHA Diet (Heart Healthy), Diabetes Type 2 Diet Discharge Diet Recommended Diet: N/A Procedures Procedures Performed: Stress echocardiogram Chest x-ray Loop recorder implantation Pending Studies Studies pending at discharge: no Laboratory Results Hemoglobin A1c Test 08/09/17 08:40 Range/Units Estimated Average Glucose 123 mg/dl Hemoglobin A1c 5.9 H 4.5-5.6 % Lipid Panel Test 08/09/17 08:40 Range/Units Triglycerides Level 161 H 0-150 mg/dl Cholesterol Level 117 0-200 mg/dl HDL Cholesterol 35 mg/dl LDL Cholesterol Direct 68 mg/dl Cholesterol/HDL Ratio 3.3 LDL Cholesterol, Calculated mg/dl Medical Emergencies . Who to Call and When: Medical Emergencies: If at any time you feel your situation is an emergency, please call 911 immediately. . Non-Emergent Contact Non-Emergency issues call your: Primary Care Provider . . "Provider Documentation" section prepared by Mitch Lay. .
[2017-09-12 14:18] VITALS: BP 140/74; PULSE 46; TEMP 36.5; O2SAT 97
== END 2017-09-12 15:05 | disposition home or self-care (01) ==
LOC: EDBD 12:05 → C.EDA 12:06 → C.2T 14:35 → ENRESERV 15:02
PROVIDERS: ADMIT Internal Medicine; ATTEND Family Medicine
DX: R55 Syncope and collapse (principal); I47.2 Ventricular tachycardia; N17.9 Acute kidney failure, unspecified; E83.42 Hypomagnesemia; I25.2 Old myocardial infarction; E78.5 Hyperlipidemia, unspecified; I25.10 Atherosclerotic heart disease of native coronary artery without angina pectoris; E11.9 Type 2 diabetes mellitus without complications; Z83.3 Family history of diabetes mellitus; Z82.49 Family history of ischemic heart disease and other diseases of the circulatory system; Z79.82 Long term (current) use of aspirin; Z79.84 Long term (current) use of oral hypoglycemic drugs; Z79.899 Other long term (current) drug therapy; Z95.5 Presence of coronary angioplasty implant and graft